=== PATIENT | male | born 1980 | race Caucasian/White ===

== ENCOUNTER 2021-02-04 09:34 | Outpatient (REF) | payer BC, SELFPAY ==
[2021-02-04 11:22] LABS: MANUAL DIFF FLAG NO
[2021-02-04 11:25] LABS: Basophils Percent Auto 0.4 % (0-2); Eosinophils Absolute Auto 0.3 X10*3/uL (0.0-0.4); Hematocrit 42.7 % (42-52); Hemoglobin 14.7 g/dl (14.0-18.0); Imm Gran Abs Auto 0.01 X10*3/uL (0.00-0.03); Imm Gran Pct Auto 0.1 % (0.0-0.4); Lymphocytes Absolute Auto 2.6 X10*3/uL (1.2-4.9); Lymphocytes Percent Auto 37.6 % (20-40); Mean Corpuscular HGB Conc 34.4 g/dl (31.0-36.0); Mean Corpuscular Hemoglobin 30.6 pg (27.0-33.0); Mean Platelet Volume 8.8 fL (9.4-12.4); Monocytes Absolute Auto 0.7 X10*3/uL (0.1-1.2); Monocytes Percent Auto 10.3 % (2-11); Neutrophils Absolute Auto 3.3 X10*3/uL (2.0-8.3); Neutrophils Percent Auto 47.6 % (45-73); Platelet Count 334 X10*3/uL (160-400); Red Cell Distribution Width 12.8 % (11.0-16.0)
[2021-02-04 12:21] LABS: Alanine Aminotransferase 26 U/L (0-40); Albumin Level 4.4 g/dL (3.5-5.0); Alkaline Phosphatase 63 U/L (39-117); Anion Gap 10 (12-20); Aspartate Amino Transferase 18 U/L (5-37); Bilirubin Total 0.6 mg/dL (0.0-1.0); Blood Urea Nitrogen 14 mg/dL (9-16); Calcium 9.1 mg/dL (8.4-10.2); Carbon Dioxide 27 mmol/L (22-29); Chloride 106 mmol/L (96-108); Cholesterol 157 mg/dL; Estimated Glomerular Filt Rate > 60; Glucose Fasting 89 mg/dL (60-99); HDL Cholesterol 50 mg/dL; LDL Cholesterol Calculated 90 mg/dl; Potassium 4.6 mmol/L (3.3-5.1); Prostate Specific Antigen 1.06 ng/mL (<0.05-4.0); Sodium 138 mmol/L (135-145); Total Protein 6.6 g/dL (6.5-8.0); Triglycerides 87 mg/dL
== END 2021-02-04 09:35 | disposition home or self-care (01) ==
LOC: HO.MANLDS 09:34
PROVIDERS: PCP Internal Medicine; Visit Provider Internal Medicine
DX: Z00.00 Encounter for general adult medical examination without abnormal findings (principal); Z12.5 Encounter for screening for malignant neoplasm of prostate
CPT/HCPCS: 36415; 80053; 80061; 84153; 85025

== ENCOUNTER 2021-08-05 07:48 | Outpatient (REF) | payer BC, SELFPAY ==
[2021-08-05 11:07] LABS: Hematocrit 46.9 % (42.0-52.0); Hemoglobin 15.8 g/dl (14.0-18.0); Mean Corpuscular HGB Conc 33.7 g/dl (31.0-36.0); Platelet Count 345 X10*3/uL (160-400); Red Blood Count 5.27 X10*6/uL (4.60-5.80); Red Cell Distribution Width 12.8 % (11.0-16.0); White Blood Count 7.7 X10*3/uL (4.8-10.8)
[2021-08-05 11:38] LABS: Alanine Aminotransferase 17 U/L (0-40); Albumin Level 4.6 g/dL (3.5-5.0); Alkaline Phosphatase 56 U/L (39-117); Anion Gap 15 (12-20); Aspartate Amino Transferase 15 U/L (5-37); Bilirubin Total 0.7 mg/dL (0.0-1.0); Blood Urea Nitrogen 15 mg/dL (9-16); Calcium 9.7 mg/dL (8.4-10.2); Carbon Dioxide 26 mmol/L (22-29); Chloride 105 mmol/L (96-108); Cholesterol 160 mg/dL; Estimated Glomerular Filt Rate > 60; Glucose Fasting 86 mg/dL (60-99); HDL Cholesterol 48 mg/dL; LDL Cholesterol Calculated 93 mg/dl; Potassium 4.7 mmol/L (3.3-5.1); Sodium 141 mmol/L (135-145); Triglycerides 99 mg/dL
== END 2021-08-05 07:49 | disposition home or self-care (01) ==
LOC: HO.MANLDS 07:48
PROVIDERS: PCP Internal Medicine; Visit Provider Internal Medicine
DX: Z00.00 Encounter for general adult medical examination without abnormal findings (principal); E78.00 Pure hypercholesterolemia, unspecified
CPT/HCPCS: 36415; 80053; 80061; 85027

== ENCOUNTER 2022-02-10 08:54 | Outpatient (REF) | payer BC, SELFPAY ==
[2022-02-10 11:02] LABS: Urine Cytology See Pathology rpt
[2022-02-10 11:07] LABS: Hematocrit 43.3 % (42.0-52.0); Hemoglobin 14.9 g/dl (14.0-18.0); Mean Corpuscular HGB Conc 34.4 g/dl (31.0-36.0); Mean Corpuscular Hemoglobin 30.3 pg (27.0-33.0); Mean Corpuscular Volume 88.2 fL (80.0-98.0); Mean Platelet Volume 8.8 fL (9.4-12.4); Platelet Count 347 X10*3/uL (160-400); Red Blood Count 4.91 X10*6/uL (4.60-5.80); White Blood Count 6.2 X10*3/uL (4.8-10.8)
[2022-02-10 11:09] LABS: Appearance Urine CLEAR; Color Urine YELLOW; Glucose Urine UA NEG (NEG); Leukocyte Esterase Urine NEG (NEG); Nitrite Urine NEG (NEG); Urine Blood 1+ (NEG); Urine Ketones NEG (NEG); Urine Protein NEG (NEG-TRACE)
[2022-02-10 11:19] LABS: Alanine Aminotransferase 24 U/L (0-40); Albumin Level 4.2 g/dL (3.5-5.0); Alkaline Phosphatase 66 U/L (39-117); Anion Gap 11 (12-20); Aspartate Amino Transferase 18 U/L (5-37); Bilirubin Total 0.6 mg/dL (0.0-1.0); Blood Urea Nitrogen 13 mg/dL (9-16); Calcium 9.4 mg/dL (8.4-10.2); Carbon Dioxide 25 mmol/L (22-29); Chloride 105 mmol/L (96-108); Cholesterol 164 mg/dL; Estimated Glomerular Filt Rate > 60; Glucose Fasting 97 mg/dL (60-99); HDL Cholesterol 46 mg/dL; LDL Cholesterol Calculated 105 mg/dl; Potassium 4.5 mmol/L (3.3-5.1); Sodium 136 mmol/L (135-145); Total Protein 6.7 g/dL (6.5-8.0); Triglycerides 68 mg/dL
[2022-02-10 11:25] LABS: Squamous Epithelial Cell Urine TRACE /LPF; WBC Urine 0-2 /HPF (0-4)
[2022-02-10 11:41] LABS: Thyroid Stimulating Hormone 0.59 uIU/mL (0.32-4.0); Vitamin D 25-OH Total 10.6 ng/mL (>30)
[2022-02-16 18:37] LABS: Testosterone, Free 126.2 pg/mL (35.0-155.0); Testosterone, Total 644 ng/dL (250-1100)
== END 2022-02-10 08:55 | disposition home or self-care (01) ==
LOC: HO.MANLDS 08:54
PROVIDERS: PCP Internal Medicine; Visit Provider Internal Medicine
DX: E78.00 Pure hypercholesterolemia, unspecified (principal); M51.37 Other intervertebral disc degeneration, lumbosacral region; R53.83 Other fatigue; E55.9 Vitamin D deficiency, unspecified; R31.9 Hematuria, unspecified
CPT/HCPCS: 36415; 80053; 80061; 81001; 82306; 84402; 84403; 84443; 85027; 88112

== ENCOUNTER 2022-07-17 08:04 | Outpatient (REF) | payer BC, SELFPAY ==
[2022-07-17 11:02] LABS: MANUAL DIFF FLAG NO
[2022-07-17 11:05] LABS: Basophils Percent Auto 0.3 % (0-2); Eosinophils Absolute Auto 0.3 X10*3/uL (0.0-0.4); Eosinophils Percent Auto 3.6 % (0-4); Hematocrit 44.9 % (42.0-52.0); Hemoglobin 15.4 g/dl (14.0-18.0); Imm Gran Abs Auto 0.02 X10*3/uL (0.00-0.03); Imm Gran Pct Auto 0.3 % (0.0-0.4); Lymphocytes Absolute Auto 2.8 X10*3/uL (1.2-4.9); Lymphocytes Percent Auto 38.1 % (20-40); Mean Corpuscular HGB Conc 34.3 g/dl (31.0-36.0); Mean Corpuscular Hemoglobin 30.3 pg (27.0-33.0); Mean Corpuscular Volume 88.4 fL (80.0-98.0); Mean Platelet Volume 8.8 fL (9.4-12.4); Monocytes Absolute Auto 0.8 X10*3/uL (0.1-1.2); Monocytes Percent Auto 10.7 % (2-11); Neutrophils Absolute Auto 3.4 x10*3/uL (2.0-8.3); Platelet Count 357 X10*3/uL (160-400); Red Blood Count 5.08 X10*6/uL (4.60-5.80); Red Cell Distribution Width 12.4 % (11.0-16.0); White Blood Count 7.3 X10*3/uL (4.8-10.8)
[2022-07-17 11:19] LABS: Alanine Aminotransferase 28 U/L (0-40); Albumin Level 4.7 g/dL (3.5-5.0); Alkaline Phosphatase 77 U/L (39-117); Anion Gap 14 (12-20); Aspartate Amino Transferase 17 U/L (5-37); Bilirubin Total 0.8 mg/dL (0.0-1.0); Blood Urea Nitrogen 14 mg/dL (9-16); Calcium 9.9 mg/dL (8.4-10.2); Carbon Dioxide 28 mmol/L (22-29); Chloride 101 mmol/L (96-108); Cholesterol 173 mg/dL; Estimated Glomerular Filt Rate > 60; Glucose Random 90 mg/dL (60-115); HDL Cholesterol 50 mg/dL; LDL Cholesterol Calculated 104 mg/dl; Potassium 4.4 mmol/L (3.3-5.1); Sodium 139 mmol/L (135-145); Total Protein 7.2 g/dL (6.5-8.0); Triglycerides 97 mg/dL
[2022-07-17 11:40] LABS: Prostate Specific Antigen 1.37 ng/mL (<0.05-4.0)
[2022-07-17 11:51] LABS: Vitamin B12 418 pg/mL (200-900)
== END 2022-07-17 08:05 | disposition home or self-care (01) ==
LOC: HO.MANLDS 08:04
PROVIDERS: Visit Provider Internal Medicine
DX: Z12.5 Encounter for screening for malignant neoplasm of prostate (principal); E78.00 Pure hypercholesterolemia, unspecified
CPT/HCPCS: 36415; 80053; 80061; 82306; 82607; 84153; 85025

== ENCOUNTER 2023-03-13 08:15 | Outpatient (REF) | payer BC, SELFPAY ==
[2023-03-13 11:27] LABS: MANUAL DIFF FLAG NO
[2023-03-13 11:37] LABS: Basophils Percent Auto 0.4 % (0-2); Eosinophils Absolute Auto 0.2 X10*3/uL (0.0-0.4); Eosinophils Percent Auto 2.4 % (0-4); Hematocrit 44.7 % (42.0-52.0); Hemoglobin 15.2 g/dl (14.0-18.0); Imm Gran Abs Auto 0.02 X10*3/uL (0.00-0.03); Imm Gran Pct Auto 0.3 % (0.0-0.4); Lymphocytes Absolute Auto 2.7 X10*3/uL (1.2-4.9); Lymphocytes Percent Auto 38.5 % (20-40); Mean Corpuscular Volume 88.3 fL (80.0-98.0); Mean Platelet Volume 8.8 fL (9.4-12.4); Monocytes Absolute Auto 0.7 X10*3/uL (0.1-1.2); Monocytes Percent Auto 10.4 % (2-11); Neutrophils Absolute Auto 3.4 x10*3/uL (2.0-8.3); Platelet Count 357 X10*3/uL (160-400); Red Blood Count 5.06 X10*6/uL (4.60-5.80); Red Cell Distribution Width 13.1 % (11.0-16.0); White Blood Count 7.1 X10*3/uL (4.8-10.8)
[2023-03-13 12:20] LABS: Alanine Aminotransferase 27 U/L (0-40); Albumin Level 4.4 g/dL (3.5-5.0); Alkaline Phosphatase 68 U/L (39-117); Anion Gap 13 (12-20); Aspartate Amino Transferase 19 U/L (5-37); Bilirubin Total 0.7 mg/dL (0.0-1.0); Blood Urea Nitrogen 14 mg/dL (9-16); Calcium 9.9 mg/dL (8.4-10.2); Carbon Dioxide 25 mmol/L (22-29); Chloride 106 mmol/L (96-108); Cholesterol 152 mg/dL; Estimated Glomerular Filt Rate > 60; Glucose Random 93 mg/dL (60-115); HDL Cholesterol 45 mg/dL; LDL Cholesterol Calculated 88 mg/dl; Potassium 4.4 mmol/L (3.3-5.1); Sodium 140 mmol/L (135-145); Total Protein 6.9 g/dL (6.5-8.0); Triglycerides 95 mg/dL
[2023-03-13 12:21] LABS: Prostate Specific Antigen 1.45 ng/mL (<0.05-4.0)
[2023-03-13 12:24] LABS: Vitamin D 25-OH Total 27.5 ng/mL (>30)
== END 2023-03-13 08:16 | disposition home or self-care (01) ==
LOC: HO.MANLDS 08:15
PROVIDERS: Visit Provider Internal Medicine
DX: Z12.5 Encounter for screening for malignant neoplasm of prostate (principal); F45.8 Other somatoform disorders; E55.9 Vitamin D deficiency, unspecified; E78.00 Pure hypercholesterolemia, unspecified
CPT/HCPCS: 36415; 80053; 80061; 82306; 84153; 85025

== ENCOUNTER 2023-03-16 15:50 | Outpatient (REF) | payer BC, SELFPAY ==
[2023-03-16 19:06] LABS: Appearance Urine Clear; Color Urine Yellow; Glucose Urine UA Negative (Negative); Leukocyte Esterase Urine Negative (Negative); Nitrite Urine Negative (Negative); Specific Gravity - Urine <= 1.005 (1.005-1.025); UMIC TRIGGER UA YES; Urine Blood Moderate (2+) (Negative); Urine Ketones Negative (Negative); Urine Protein Negative (Neg-Trace)
[2023-03-16 19:11] LABS: Bacteria Urine None Seen (None Seen); Hyaline Casts Urine 0-2 /LPF (0-2); Squamous Epithelial Cell Urine 0-2 /HPF (0-2); WBC Urine 0-5 /HPF (0-5)
== END 2023-03-16 15:51 | disposition home or self-care (01) ==
LOC: HO.MANLNP 15:50
PROVIDERS: Visit Provider Internal Medicine
DX: R31.29 Other microscopic hematuria (principal)
CPT/HCPCS: 81001; 81003

== ENCOUNTER 2023-04-10 12:02 | Outpatient (REF) | payer BC, SELFPAY ==
[2023-04-10 17:36] LABS: Urine Cytology See Pathology rpt
== END 2023-04-10 12:03 | disposition home or self-care (01) ==
LOC: HO.MANLDS 12:02
PROVIDERS: Visit Provider Internal Medicine
DX: R31.21 Asymptomatic microscopic hematuria (principal)
CPT/HCPCS: 88112

== ENCOUNTER 2023-07-10 08:35 | Outpatient (REF) | payer BC, SELFPAY ==
[2023-07-10 13:17] LABS: MANUAL DIFF FLAG NO
[2023-07-10 13:46] LABS: Basophils Percent Auto 0.5 % (0-2); Eosinophils Absolute Auto 0.2 X10*3/uL (0.0-0.4); Eosinophils Percent Auto 2.8 % (0-4); Hemoglobin 15.4 g/dl (14.0-18.0); Imm Gran Abs Auto 0.02 X10*3/uL (0.00-0.03); Imm Gran Pct Auto 0.3 % (0.0-0.4); Lymphocytes Absolute Auto 2.5 X10*3/uL (1.2-4.9); Mean Corpuscular HGB Conc 34.2 g/dl (31.0-36.0); Mean Corpuscular Hemoglobin 30.7 pg (27.0-33.0); Mean Corpuscular Volume 89.6 fL (80.0-98.0); Mean Platelet Volume 9.3 fL (9.4-12.4); Monocytes Absolute Auto 0.6 X10*3/uL (0.1-1.2); Neutrophils Absolute Auto 2.9 x10*3/uL (2.0-8.3); Neutrophils Percent Auto 46.4 % (45-73); Platelet Count 372 X10*3/uL (160-400); Red Blood Count 5.02 X10*6/uL (4.60-5.80); Red Cell Distribution Width 13.1 % (11.0-16.0); White Blood Count 6.2 X10*3/uL (4.8-10.8)
[2023-07-10 15:02] LABS: Alanine Aminotransferase 30 U/L (0-40); Albumin Level 4.6 g/dL (3.5-5.0); Alkaline Phosphatase 71 U/L (39-117); Anion Gap 17 (12-20); Aspartate Amino Transferase 20 U/L (5-37); Bilirubin Total 0.5 mg/dL (0.0-1.0); Blood Urea Nitrogen 15 mg/dL (9-16); Carbon Dioxide 25 mmol/L (22-29); Chloride 105 mmol/L (96-108); Cholesterol 166 mg/dL (<200); Estimated Glomerular Filt Rate > 60; Glucose Random 64 mg/dL (60-115); HDL Cholesterol 46 mg/dL (>40); LDL Cholesterol Calculated 102 mg/dL (<100); Potassium 4.9 mmol/L (3.3-5.1); Sodium 142 mmol/L (135-145); Total Protein 7.4 g/dL (6.5-8.0); Triglycerides 92 mg/dL (<150)
== END 2023-07-10 08:36 | disposition home or self-care (01) ==
LOC: HO.MANLDS 08:35
PROVIDERS: Visit Provider Internal Medicine
DX: Z12.5 Encounter for screening for malignant neoplasm of prostate (principal); E78.00 Pure hypercholesterolemia, unspecified
CPT/HCPCS: 36415; 80053; 80061; 84153; 85025

== ENCOUNTER 2023-11-28 08:47 | Outpatient (REF) | payer BC, SELFPAY ==
[2023-11-28 13:03] LABS: MANUAL DIFF FLAG NO
[2023-11-28 13:30] LABS: Basophils Percent Auto 0.5 % (0-2); Eosinophils Absolute Auto 0.3 X10*3/uL (0.0-0.4); Eosinophils Percent Auto 3.9 % (0-4); Hematocrit 45.6 % (42.0-52.0); Hemoglobin 15.5 g/dl (14.0-18.0); Imm Gran Abs Auto 0.02 X10*3/uL (0.00-0.03); Imm Gran Pct Auto 0.3 % (0.0-0.4); Lymphocytes Absolute Auto 2.3 X10*3/uL (1.2-4.9); Lymphocytes Percent Auto 36.8 % (20-40); Mean Corpuscular Hemoglobin 30.4 pg (27.0-33.0); Mean Corpuscular Volume 89.4 fL (80.0-98.0); Mean Platelet Volume 9.2 fL (9.4-12.4); Monocytes Absolute Auto 0.7 X10*3/uL (0.1-1.2); Monocytes Percent Auto 10.7 % (2-11); Neutrophils Percent Auto 47.8 % (45-73); Platelet Count 359 X10*3/uL (160-400); Red Cell Distribution Width 13.1 % (11.0-16.0); White Blood Count 6.3 X10*3/uL (4.8-10.8)
[2023-11-28 13:39] LABS: Alanine Aminotransferase 27 U/L (0-40); Albumin Level 4.5 g/dL (3.5-5.0); Alkaline Phosphatase 75 U/L (39-117); Anion Gap 11 (12-20); Aspartate Amino Transferase 20 U/L (5-37); Bilirubin Total 0.6 mg/dL (0.0-1.0); Blood Urea Nitrogen 10 mg/dL (9-16); Calcium 9.7 mg/dL (8.4-10.2); Carbon Dioxide 28 mmol/L (22-29); Chloride 105 mmol/L (96-108); Estimated Glomerular Filt Rate > 60; Glucose Random 90 mg/dL (60-115); Potassium 4.5 mmol/L (3.3-5.1); Sodium 139 mmol/L (135-145); Total Protein 7.2 g/dL (6.5-8.0)
[2023-11-28 13:43] LABS: Free T4 (Free Thyroxine) 1.01 ng/dL (0.71-1.85); Thyroid Stimulating Hormone 0.77 uIU/mL (0.32-4.0); Vitamin D 25-OH Total 40.9 ng/mL (>30)
[2023-11-28 14:52] LABS: Folate 14.8 ng/mL (> or = 4.0); Vitamin B12 487 pg/mL (200-900)
== END 2023-11-28 08:48 | disposition home or self-care (01) ==
LOC: HO.MANLDS 08:47
PROVIDERS: Visit Provider Internal Medicine
DX: R53.83 Other fatigue (principal); R55 Syncope and collapse
CPT/HCPCS: 36415; 80053; 82306; 82607; 82746; 84439; 84443; 85025

== ENCOUNTER → 2024-01-28 08:52 | Outpatient (REF) | payer BC, SELFPAY ==
--- NOTE | 2024-01-28 08:57 | CA_ITS ---
Transthoracic Echocardiogram Patient (Last, First, Middle): Gil Garcia, Gender: Male Date of : 1980 Age: 43 Procedure Date: 01/28/2024 Procedure Type: Transthoracic Echocardiogram Location: OP Height: 177.8 cm Weight: 90.72 kg BSA: 2.09 m2 Heart Rate: 78 bpm BP: 120 / 72 mmHg Furnace Installer: SB Referring MD: Adonis Noel MD Induction Coordination Power Engineer: Noé Jordan MD Symptoms: I95.1 ORTHOSTATIC HTN Study Quality: Adequate ECG Rhythm: Sinus Conclusions: - Essentially normal study Findings Left Ventricle Normal left ventricular size, thickness, and systolic function. The visually estimated ejection fraction is between 55-60%. Diastolic function is normal for age. Right Ventricle Normal right ventricular cavity size and systolic function. Atria Both atria are normal in size. There is no evidence of interatrial shunt. Aortic Valve Normal aortic valve structure and function. There is no aortic valve stenosis. There is no aortic valve regurgitation. Mitral Valve Normal mitral valve structure and function. There is trace mitral valve regurgitation. There is no mitral valve stenosis. Pulmonic Valve The pulmonic valve is likely normal. There is trace to mild pulmonic valve regurgitation. Tricuspid Valve Normal tricuspid valve structure. There is trace tricuspid valve regurgitation. The right ventricular systolic pressure is normal. Normal right atrial pressure. Great Vessels All visible segments of the aorta are normal in size. The pulmonary artery was not well visualized. Venous The inferior vena cava is normal in size and collapses greater than 50% with inspiration. Pericardium/Pleural There is no evidence of pericardial effusion. Prior Study Comparison No prior study available for comparison. Measurements 2D Linear Measurements IVSd: 0.89 0.6-0.9/0.6-1.0 cm LVIDd: 5.41 3.9-5.3/4.2-5.9 cm LVIDd Index: 2.59 2.4-3.2/2.2-3.1 cm/m2 LVIDs: 3.46 2.0-3.6 cm LVPWd: 1.00 0.7-1.1 cm LA Diam: 3.70 2.7-3.8/3.0-4.0 cm LAIDs Index: 1.77 1.5-2.3 cm/m2 LV Mass: 240.57 67-162/88-224 g LV Mass Index: 115.10 43-95/49-115 g/m2 LVOT Diam: 2.50 3.0+(-)1.3 cm 2D Systolic Function EF 4C: 55.70 >55% EF 2C: 58.70 >55% EF BiP: 58.20 >55% Mitral Valve MV Pk E: 0.72 MV PK A: 0.64 MV Decel Time: 195.00 E/A: 1.10 E'Lateral: 10.90 E'Medial: 6.85 E/E' Med: 10.60 E/E' Lat: 6.60 PHT: 57.00 MVA PHT: 3.86 Decel [place]: 3.72 Aortic Valve AoV Pk Ravi: 1.12 AoV Pk Grad: 5.00 LVOT LVOT Pk Ravi: 0.98 LVOT Mn Ravi: 0.68 LVOT VTI: 0.18 LVOT Pk Grad: 4.00 LVOT Mn Grad: 2.00 LVOT Diam: 2.50 LVOT Area: 4.91 Diastolic Function MV Pk E: 0.72 MV Pk A: 0.64 E/A: 1.10 E'Medial: 6.85 E/E' Med: 10.60 E' Laterial: 10.90 E/E' Lat: 6.60 Right Ventricle TAPSE (mm): 27.70 TVS' Ravi: 13.40 Tricuspid Valve RA Press: 8.00 Great Vessels Aorta Sinus of Valsalva: 3.90 2.0-3.5 cm Ao Asc: 3.30 2.1-3.4 cm Pulmonary Veins Pulm Vein S/D 0.70 Pulmonary Valve PV Pk Ravi: 1.01 Peak PV Grad: 4.00 Updated in Other Vendor System with Status of Final Noé Jordan MD electronically signed on 01/28/2024 11:56:45 AM with status of Final
== END ==
LOC: HO.CARD 08:52
PROVIDERS: PCP Internal Medicine; Visit Provider Internal Medicine
DX: I95.1 Orthostatic hypotension (principal)
CPT/HCPCS: 93306

== ENCOUNTER → 2024-01-28 08:57 | Outpatient (BNV) | payer BC, SELFPAY | PROVIDERS: PCP Internal Medicine; Visit Provider Internal Medicine Cardiovascular Disease | DX: I34.0 Nonrheumatic mitral (valve) insufficiency (principal); I36.1 Nonrheumatic tricuspid (valve) insufficiency; I95.1 Orthostatic hypotension | CPT/HCPCS: 93306 ==

== ENCOUNTER 2024-02-04 07:30 | Outpatient (REF) | payer BC, SELFPAY ==
[2024-02-04 14:28] LABS: Cholesterol 200 mg/dL (<200); HDL Cholesterol 47 mg/dL (>40); LDL Cholesterol Calculated 135 mg/dL (<100); Triglycerides 93 mg/dL (<150)
== END 2024-02-04 07:31 | disposition home or self-care (01) ==
LOC: HO.MANLDS 07:30
PROVIDERS: Visit Provider Internal Medicine
DX: Z79.899 Other long term (current) drug therapy (principal); T46.6X5A Adverse effect of antihyperlipidemic and antiarteriosclerotic drugs, initial encounter
CPT/HCPCS: 36415; 80061

== ENCOUNTER 2024-11-12 08:52 | Outpatient (REF) | payer BC, SELFPAY ==
--- OUTSIDE RECORDS SUMMARY | 2024-11-12 09:41 | XMS_ITS | Continuity of Care Document ---
Author Organization [facility], [facility] Address [address] [place] [address] Assessment Encounter Date Assessment Date Assessment LastModified by Organization Details LastModified Time 10/24/2024 10/24/2024 Patient agreed and verbally consents to this audio and video Telehealth appt via a secure platform [email or web address] Not available 10/24/2024 13:42:15 Plan of Treatment Reminders Order Date Submit Date Provider Last Modified By Organization Details Last Modified Time Details Appointments FOLLOW UP 15 2024 03:30P M DR CLEMENTE Not available Not available Not available Lab None recorded. Referral None recorded. Procedures None recorded. Surgeries None recorded. Imaging None recorded. Medication Orders ondansetr on 8 mg disintegr ating tablet 2024 025 [facility][id number], [address] [place] [address], [id number], 10/24/2024 13:47:03 benzonata te 200 mg capsule 2024 025 [facility] #[id number], [address] [place] [address], [id number], 10/24/2024 13:47:04 ciproflox acin 500 mg tablet 2024 025 [facility] #[id number], [address] [place] [address], [id number], 10/24/2024 13:47:03 Medrol (Jozef) 4 mg tablets in a dose pack 2024 025 [facility] #[id number], [address], [place], [id number], 10/24/2024 13:47:02 Patient TargetsNo targets recorded. Patient InstructionsNo instructions recorded. Reason for Referral None Reported. 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 20441576162 4105 Active 2018 Not Available [facility] 4 03:52:31 Depressi ve disorder 06488794 Completed 201902/16/2023 Adonis Clemente, DO [address] [place], [address], [facility] 3 16:28:01 Tobacco dependen ce syndrome 17136489 Active 2020 Not Available [facility] 4 03:52:31 Hordeolu m externum of upper eyelid of right eye 99608332612 9100 Active 2021 Not Available [facility] 4 03:52:30 Pityrias is rosea 53476696 Active 2021 Not Available [facility] 4 03:52:31 Generali zed rash 741392833 Active 2021 Not Available [facility] 4 03:52:31 Pain of left eye 70349101845 9104 Active 2021 Not Available [facility] 4 03:52:31 Rosacea 675916498 Active 2022 Not Available [facility] 4 03:52:31 Vitamin D deficien cy 99167657 Active 2022 Not Available [facility] 4 03:52:31 Blood in urine 92633493 Active 2022 Not Available [facility] 4 03:52:31 Microsco pic hematuri a 612800686 Active 2022 Not Available [facility] 4 03:52:30 Asymptom atic microsco pic hematuri a 92266701827 243581 Active 2022 Not Available [facility] 4 03:52:30 Near syncope 194619487 Active 2022 Not Available [facility] 4 03:52:31 COVID-19 214975215 Active 2022 Not Available [facility] 4 03:52:31 Syncope 770961708 Active 2023 Not Available [facility] 4 03:52:30 Benign paroxysm al position al vertigo 456399644 Active 2023 Not Available [facility] 4 03:52:30 Fatigue 85219720 Active 2023 Not Available [facility] 4 03:52:31 Dizzines s 324155174 Active 2023 Adonis Clemente, [address] [place], [address], [facility] 4 14:56:51 Orthosta tic hypotens ion 66530205 Active 2023 Adonis Clemente DO [address] [place], [address], [facility] 4 15:00:31 Cervical lymphade nopathy 793970922 Active 2023 KATHERINE FLORES [address] [place], [address], [facility] 4 15:24:59 Infectio n of foot 290507637 Active 2023 Adonis Clemente DO [address] [place], [address], [facility] 4 16:29:59 Myalgia caused by statin 03267316007 352421 Active 2023 Adonis Clemente DO [address] [place], [address], [facility] 4 16:33:09 Asthma 552146115 Active 2023 Adonis Clemente, DO [address] [place] [address], [address], [facility] 4 14:28:08 Allergic rhinitis 42769128 Active 2023 Adonis Clemente, DO [address] [place] [address], [address], [facility] 4 14:28:49 Anxiety 24173901 Active 2023 Adonis Clemente, DO [address] [place] [address], [address], [facility] 4 14:33:39 Wayne hematuri a 171494897 Active 2023 Adonis Clemente DO [address] [place] [address], [address], [facility] 4 10:46:06 Acute bronchit is 56245950 Active 2024 KATHERINE FLORES [address] [place] [address], [address], [facility] 5 13:42:05 Diarrhea 59731422 Active 2024 KATHERINE FLORES [address] [place] [address], [address], [facility] 5 13:42:44 Nausea and vomiting 06076603 Active 2024 KATHERINE FLORES [address] [place] [address], [address], [facility] 5 13:42:55 Cough 98280327 Active 2024 KATHERINE FLORES [address] [place] [address], [address], [facility] 5 13:45:11 Degenera tion of lumbar interver tebral disc 98341159 Completed 201707/15/2018 Adonis Clemente DO [address] [place], [address], [facility] 8 16:05:33 Function al dysphagi a 011398879 Active 2017 Not Available [facility] 4 03:52:31 Anxiety disorder 665039727 Active 2017 Not Available [facility] 4 03:52:30 Hypercho lesterol emia 26559766 Active 2017 Not Available [facility] 4 03:52:30 Notes:Some problems listed i n Documents: #[id number], #[id number] could not be added to this patient's chart. Please review these documents and add these problems to the patient's chart manually as needed. Problem Notes None recorded. Procedures Surgical History Date Name Laterality Status Provider Name and Address Organization Details Recorded Time 1 Suture/Stap le removal completed KATHERINE FLORES [address] [place] [address], [address], [facility] 01/05/2021 09:22:24 Imaging Results None recorded. Procedure Notes None recorded. Medical Equipment None Reported. Allergies Allergen ID Allergen Name Allergen Category Reaction Reaction Severity Criticality Documentation Date Start Date Code Code System Note Provider Name and Address Organization Details Recorded Time 1464 cyclobenz aprine hydrochlo ride medicatio n Not available Not available Not available 02/12/2018 23407 RxNorm [facility] 8 15:17:41 3761 bupropion Not available insomnia Not available Not available 11/28/2019 86179 RxNorm Adonis AvaIrvin Clemente, [address] [place], [address], [facility] 0 16:10:17 3777 mirtazapi ne medicatio n insomnia severe Not available 12/15/2019 50245 RxNorm Adonis EscalanteIrvin Sadie DO [address] [place], [address], [facility] 0 14:16:21 Medications Name Sig Start Date Stop Date Status Note LastModified by Organization Details LastModified Time doxycycline hyclate 100 mg tabs 06/11 completed Not Available Not Available Not Available nicotine transdermal system 21 mg/24hr pt24 12/16 completed Not Available Not Available Not Available guaiatussin ac 100-10 mg/5ml syrp 10/13 completed Not Available Not Available Not Available rosuvastati n calcium 5 mg tabs 11/11 completed Not Available Not Available Not Available clindamycin phosphate 1 % swab 01/11 completed Not Available Not Available Not Available oxycodone hcl 5 mg tabs 08/12 completed Not Available Not Available Not Available nicotine transdermal system step 214 mg/24hr pt24 06/11 completed Not Available Not Available Not Available omeprazole 20 mg cpdr 11/11 completed Not Available Not Available Not Available bupropion hydrochlori de er (sr) 150 mg tb12 11/11 completed Not Available Not Available Not Available omeprazole dr 20 mg cpdr 04/01 completed Not Available Not Available Not Available alprazolam 1 mg tabs 11/11 completed Not Available Not Available Not Available azithromyci n 250 mg tabs 10/13 completed Not Available Not Available Not Available buspirone hcl 15 mg tabs 10/09 completed Not Available Not Available Not Available oxycodone hydrochlori de 5 mg tabs 01/11 completed Not Available Not Available Not Available nicotine transdermal system 7 mg/24hr pt24 06/11 completed Not Available Not Available Not Available buspirone 5 mg tablet 03/25 completed Not Available Not Available Not Available prednisone 10 mg tablet 5 tabs x 3 days4 tabs x 3 days 3 tabs x 3 days2 tabs x 3 days1 tab x 3 days 02/22 completed Not Available Not Available Not Available nicotine 14 mg/24 hr daily transdermal patch Apply 1 patch every day by transderm al route. 08/12 completed Not Available Not Available Not Available azithromyci n 250 mg tablet TAKE 2 TABLETS (500 MG) BY ORAL ROUTE ONCE DAILY FOR 1 DAY THEN 1 TABLET (250 MG) BY ORAL ROUTE ONCE DAILY FOR 4 DAYS 10/13 completed Not Available Not Available Not Available alprazolam 1 mg tablet TAKE 1 TABLET BY MOUTH THREE TIMES DAILY BEFORE A MEAL active Not Available Not Available No t Available benzonatate 200 mg capsule TAKE 1 CAPSULE BY MOUTH THREE TIMES DAILY FOR 7 DAYS NEEDED FOR COUGH active Not Available Not Available No t Available prednisone 20 mg tablet TAKE 1 TABLET BY MOUTH EVERY DAY FOR 5 DAYS 05/01 completed Not Available Not Available Not Available Wellbutrin SR 150 mg tablet, 12 hr sustained-r elease Take 1 tablet twice a day by oral route for 30 days. 11/27 completed Not Available Not Available Not Available ciprofloxac in 500 mg tablet TAKE 1 TABLET BY MOUTH EVERY 12 HOURS FOR 7 DAYS active Not Available Not Available No t Available clindamycin 1 %-benzoyl peroxide 5 % topical gel APPLY TOPICALLY TO THE AFFECTED AREA TWICE DAILY IN THE MORNING AND IN THE EVENING 05/01 completed Not Available Not Available Not Available sulfamethox azole 800 mg-trimetho prim 160 mg tablet TAKE 1 TABLET BY MOUTH EVERY 12 HOURS FOR 10 DAYS 12/07 completed Not Available Not Available Not Available ondansetron 8 mg disintegrat ing tablet DISSOLVE 1 TABLET ON THE TONGUE TWICE DAILY FOR 14 DAYS NEEDED FOR NAUSEA OR VOMITING active Not Available Not Available No t Available nortriptyli ne 25 mg capsule Take 1 capsule every day by oral route at bedtime for 30 days. 03/08 completed Not Available Not Available Not Available amoxicillin 875 mg tablet TAKE 1 TABLET BY MOUTH EVERY 12 HOURS FOR 7 DAYS 01/06 completed Not Available Not Available Not Available erythromyci n 5 mg/gram (0.5 %) eye ointment APPLY 1 CM RIBBON INTO THE LOWER CONJUNCTI FRANCISCO J SAC(S) IN THE AFFECTED EYE(S) BY OPHTHALMI C ROUTE 3 TIMES PER DAY 05/01 completed Not Available Not Available Not Available mirtazapine 30 mg tablet 02/12 completed Not Available Not Available Not Available triamcinolo ne acetonide 0.1 % topical ointment APPLY TWICE A DAY TO AREAS OF RASH ON BACK NEEDED. USE UP TO 3 WEEKS AT A TIME 03/16 completed Not Available Not Available Not Available buspirone 10 mg tablet 03/25 completed Not Available Not Available Not Available Guaifenesin AC 10 mg-100 mg/5 mL oral liquid Take 10 mL 4 times a day by oral route as needed for 7 days. 10/13 completed Not Available Not Available Not Available clindamycin phosphate 1 % topical swab APPLY A THIN LAYER TO THE AFFECTED AREAS OF THE SKIN TWICE DAILY active Not Available Not Available No t Available oxycodone 5 mg capsule Take 1 capsule every 6 hours by oral route. 06/12 completed Not Available Not Available Not Available nicotine 21 mg/24 hr daily transdermal patch APPLY 1 PATCH ONTO THE SKIN EVERY DAY active Not Available Not Available No t Available omeprazole 20 mg capsule,del ayed release TAKE 1 CAPSULE BY MOUTH EVERY DAY 2023 active Not Available Not Available Not Avai lable mirtazapine 15 mg tablet Take 1 tablet every day by oral route for 30 days. 12/14 completed Not Available Not Available Not Available methylpredn isolone 4 mg tablets in a dose pack FOLLOW PACKAGE DIRECTION S active Not Available Not Available No t Available albuterol sulfate HFA 90 mcg/actuati on aerosol inhaler INHALE 2 PUFFS BY MOUTH EVERY 6 HOURS NEEDED active Not Available Not Available No t Available fluticasone propionate 50 mcg/actuati on nasal spray,suspe nsion SHAKE LIQUID AND USE 1 SPRAY IN EACH NOSTRIL EVERY DAY active Not Available Not Available No t Available doxycycline hyclate 100 mg tablet Take 1 tablet twice a day by oral route with meals for 10 days. 04/19 completed Not Available Not Available Not Available nortriptyli ne 50 mg capsule TAKE 1 CAPSULE BY MOUTH EVERY DAY IN THE EVENING 08/10 completed Not Available Not Available Not Available amoxicillin 875 mg-potassiu m clavulanate 125 mg tablet TAKE 1 TABLET BY MOUTH 2 TIMES A DAY FOR 10 DAYS. TAKE WITH FOOD 02/22 completed Not Available Not Available Not Available nicotine 7 mg/24 hr daily transdermal patch Apply 1 patch every day by transderm al route. 08/12 completed Not Available Not Available Not Available buspirone 15 mg tablet 03/25 completed Not Available Not Available Not Available oxycodone 5 mg tablet TAKE 1 TABLET BY MOUTH FOUR TIMES DAILY NEEDED 2024 active Not Available Not Available Not Avai lable rosuvastati n 5 mg tablet TAKE 1 TABLET BY MOUTH EVERY DAY 01/06 completed Not Available Not Available Not Available Adacel (Tdap Adolesn/Maikel lt)(PF)2Lf- (2.5-5-3-5m cg)-5 Lf/0.5 mL IM susp 10/18 completed Not Available Not Available Not Available Fluzone Quad (PF) 60 mcg (15 mcg x 4)/0.5 mL IM syringe ADM 0.5ML IM UTD 11/15 completed Not Available Not Available Not Available Vitals None Recorded Social History Question Answer Notes LastModified by Organizat ion Details LastModified Time Tobacco Smoking Status Current Every Day Smoker Not Available [facility] 07/20/2020 03:36:24 What Was The Date Of Your Most Recent Tobacco Screening? 08/18/2024 [email or web address] Information not available 08/18/2024 How Much Tobacco Do You Smoke? 0.5 PPD [id number] Information not available 07/20/2020 Do You Or Have You Ever Used Any Other Forms Of Tobacco Or Nicotine? No Information not available 02/22/2022 Sex: Unknown Functional Status None recorded. Mental Status None recorded. Family History Nothing Reported. Medical History No medical history recorded. Immunizations Vaccine Type Date Status Note Provider Nam e and Address Organization Details Recorded Time COVID-19, mRNA, LNP-S, PF, 30 mcg/0.3 mL dose 1 completed Not Available [facility] 11/01/2023 03:52:31 COVID-19, mRNA, LNP-S, PF, 30 mcg/0.3 mL dose 1 completed Not Available [facility] 11/01/2023 03:52:31 Influenza, split virus, quadrivalent, preservative 1 completed Not Available [facility] 11/01/2023 03:52:31 Influenza, split virus, quadrivalent, preservative 8 completed Not Available [facility] 10/04/2019 02:46:31 Tdap 0 completed Not Available [facility] 11/01/2023 03:52:31 Influenza, split virus, quadrivalent, preservative 0 completed Not Available [facility] 11/01/2023 03:52:31 COVID-19, mRNA, LNP-S, PF, 30 mcg/0.3 mL dose 1 completed Not Available [facility] 11/01/2023 03:52:31 Past Encounters Encounter ID Performer Location Encounter Start Date Encounter Closed Date Diagnosis/Indication Diagnosis SNOMED-CT Code Diagnosis ICD10 Code Diagnosis Note [id number] KATHERINE FLORES [facility] [address],[place] [address] 10/24/2024 09:30:38 10/24/2024 14:42:45 Acute bronchitis 61039225 J20.8 start on abx and steroid combo Diarrhea 09157177 R19.7 cont BRAT diet Nausea and vomiting 1691999 R11.2 start as needed zofran Cough 03118070 R05.1 use PRN Health Concerns Section Related Observation LastModified by Organization Detai ls LastModified Time None Recorded Concern Status LastModified by Organization Details LastModified Time None Recorded Payers Encounter Date Sequence Insurance Name Policy Number Policy Varma Covered Member ID Varma Member ID Guarantor Name 10/24/2024 1 [facility]: [facility] [place] [id number] Gil Garcia [id number] Gil Garcia Notes Date Note Type Note Provider Name a nd Address Organization Details Recorded Time 10/24/2024 text/html c/o sick symptom s The patient is participating in this appointment via telemedicine communication with a phone call/video calling service ([employer])The patient consents to use of these platforms in place of an in-person appointment due to either sick symptoms the patient is presenting with or current office closure due to COVID exposure in order to keep our office staff and patients safe The patient presents to the office today with concerns of sick symptoms including nausea, vomiting, diarrhea, chest tightness, dry persistant cough, aching around his ribs, feels feverish (does not have thermometer, no temp taken), body aches, chills, wheezing The symptoms started originally 4 days agoThe patient reports exposure to school aged children who have been sickThe patient symptoms mainly involves the GI symptoms and the chest tightness Pertinent comorbidities include n/a The patient symptoms are alleviated by n/aThe patient symptoms are exacerbated by activityThe patient has tested for COVID-19 and the results was negative recommend rest, fluids, starting on meds for possible bronchitis vs pna KATHERINE FLORES [address], [place], [address], [facility] 10/24/2024 13:51:14
--- OUTSIDE RECORDS SUMMARY | 2024-11-12 09:41 | XMS_ITS | Data Portability ---
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 exercising daily but he does not Functional dysphagia 722 578452 F45.8 about the same but no major changes Hypercholesterolemia 136 09278 E78.00 cont rosuvastat in as HDL 45 LDL 73 Anxiety 11970898 F41.9 will rx for [place] [id number] KATHERINE FLORES [facility] Internal Medicine [address],[place] [address] 03/08/2020 10:00:14 03/08/2020 11:58:05 Abscess 669729584 L02.91 the patient has a facial abscess, patient reported to squeezing pimple which mostly caused the abscess formation [id number] Adonis Clemente DO [facility] Internal Medicine [address] [facility] [address],[place] [address] 04/19/2020 14:18:41 04/19/2020 15:14:13 Depressive disorder 80907643 F32.9 is now in a major depression increase thenortrip [id number] to 50 Anxiety disorder 6478574 06 F41.9 will refill meds and the nortriptyl line will be increased too Herniation of lumbar intervertebral disc with sciatica 9428265653 42288 M51.16 still an ongoing issue but he is seen he is too young for surgery and not yet ready to have done we are using pain meds as needed so far and the pt has been excellent with compliance and has never asked for more etc this has been for several years now. we wish to see if we need to do anything now to prevent any future worsening. 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 long ddiscuss re using patch or gum [id number] KATHERINE FLORES [facility] Internal Medicine [address],[place] [address] 01/05/2021 09:05:19 01/05/2021 10:22:13 Removal of suture 49433179 Z48.02 tolerated well skin flaps healing well [id number] Adonis Clemente [facility] Internal Medicine [address] [place] [address],[place] [address] 01/11/2021 10:24:19 01/11/2021 11:33:53 Active or passive immunization 287840304 Z23 Adult heal th examination 839662040 Z00.00 doing well and is hanging in there despite the stress Degenerati on of lumbosacral intervertebral disc 90698822 M51.37 as above has failed PT and having worsening symptoms with radicular pain down the right leg now having trouble walking because of pain and is notably weaker in right leg [id number] Adonis Clemente DO [facility] Internal [address],[place] [address] 02/09/2021 11:35:41 02/09/2021 12:27:56 Herniation of lumbar intervertebral disc with sciatica 7923921442 61135 M51.16 still an ongoing issue but he is seen he is too young for surgery and not yet ready to have done we are using pain meds as needed so far and the pt has been excellent with compliance and has never asked for more etc this has been for several years now. we wish to see if we need to do anything now to prevent any future worsening. patient knows he should be exercising daily but he does not [id number] Adonis Clemente [facility] Internal Medicine [address] [place] [address], [place] [address] 05/16/2021 11:38:17 05/16/2021 13:53:40 Degeneration of lumbosacral intervertebral disc 60444986 M51.37 as above has failed PT and having worsening symptoms with radicular pain down the right leg now having trouble walking because of pain and is notably weaker in right leg Anxiety disorder 4192899 06 F41.9 will refill meds and the nortriptyl line will be increased too Tobacco user 070443643 Z 72.0 long discussion told to try patch or even zyn puches [id number] Adonis Clemente [facility] Internal Medicine [address] [place] [address],[place] [address] 08/10/2021 08:53:53 08/10/2021 10:50:39 Hypercholesterolemia 46117133 E78.00 cont rosuvastat in as HDL 45 LDL 73 Degenerati on of lumbosacral intervertebral disc 19217221 M51.37 as above has good and bad days depends upon activity has failed PT and having worsening symptoms with radicular pain down the right leg now having trouble walking because of pain and is notably weaker in right leg Depressive disorder 3548 9007 F32.9 major depression but seems to have been stabilized with the increase of nortriptyl line 25 to 50mg Tobacco de pendence syndrome 86568390 F17.200 long discuss re using patch or gumhis stress level should be getting Blood in urine 23656775 R31.9 [id number] Adonis Clemente [facility] Internal Medicine [address], [place] [address] 09/05/2021 09:16:07 09/05/2021 13:44:36 Anxiety disorder 185025278 F41.9 will refill meds and the nortriptyl line will be increased too Degenerati on of lumbosacral intervertebral disc 30630822 M51.37 as above has good and bad days depends upon activity has failed PT and having worsening symptoms with radicular pain down the right leg now having trouble walking because of pain and is notably weaker in right leg Tobacco de pendence syndrome 09050300 F17.200 long discuss re using patch or gumhis stress level should be getting Atypical chest pain 1025 75565 R07.89 had full w/u at ER but will go back if returns [id number] Adonis Clemente [facility] Internal Medicine [address], [address] [place] [address] 11/18/2021 14:47:44 11/18/2021 15:39:10 Hypercholesterolemia 96257053 E78.00 cont rosuvastat in as HDL 45 LDL 73 Degenerati on of lumbosacral intervertebral disc 69611437 M51.37 as above has good and bad days depends upon activity has failed PT and having worsening symptoms with radicular pain down the right leg now having trouble walking because of pain and is notably weaker in right leg Tobacco de pendence syndrome 17099089 F17.200 long discuss re using patch or gumhis stress level should be getting Fatigue 55293526 R53.83 Vitamin D deficiency 347 26344 E55.9 [id number] KATHERINE FLORES [facility] Internal Medicine [address],[place] [address] 11/23/2021 14:43:42 11/23/2021 17:00:47 Folliculitis 58532217 L02.02 will fu with abx and will call with update next week [id number] KATHERINE FLORES [facility] Internal Medicine [address],[place] [address] 12/07/2021 14:46:56 12/09/2021 08:51:03 Pityriasis rosea 97434333 L42 will start on pred taper and topical for face Acne 87387989 L70.0 will start on topical [id number] KATHERINE FLORES [facility] Internal Medicine [address],[place] [address] 12/16/2021 15:22:00 12/16/2021 16:39:24 Hordeolum externum of upper eyelid of right eye 1420415653 18889 H00.011 will start Pityriasis rosea 5184343 4 L42 improving [id number] Adonis Clemente DO [facility] Internal Medicine [address],[place] [address] 02/22/2022 15:05:55 02/22/2022 16:00:48 Depressive disorder 78137756 F32.9 major depression but seems to have been stabilized with the increase of nortriptyl line 25 to 50mg Tobacco de pendence syndrome 54353091 F17.200 long discuss re using patch or gumhis stress level should be getting Hypercholesterolemia 136 30766 E78.00 cont rosuvastat in as HDL 45 LDL 73 Anxiety disorder 7529843 06 F41.9 will refill meds and the nortriptyl line will be increased too Pityriasis rosea 0015473 4 L42 Hordeolum externum of upper eyelid of right eye 8714039631 31743 H00.011 [id number] Adonis Clemente [facility] Internal Medicine [address], [place] [address] 05/01/2022 16:11:45 05/02/2022 11:04:38 Degeneration of lumbosacral intervertebral disc 13408414 M51.37 as above has good and bad days depends upon activity has failed PT and having worsening symptoms with radicular pain down the right leg now having trouble walking because of pain and is notably weaker in right leg Hordeolum externum of upper eyelid of right eye 8157508948 H00.011 sees an optho soon has had this for 6 months Pityriasis rosea 9192896 4 L42 almost completely resolved Anxiety disorder 6325345 06 F41.9 will refill meds Hypercholesterolemia 136 57049 E78.00 cont rosuvastat in as HDL 45 LDL 73 [id number] Adonis Clemente [facility] Internal Medicine [address], [place] [address] 07/24/2022 10:02:09 07/24/2022 11:35:52 Active or passive immunization 236357779 Z23 patient advised he is due for flu shot Adult [facility] examination 211769603 Z00.00 doing well and is hanging in there despite the stress Hypercholesterolemia 136 90957 E78.00 cont rosuvastat in as HDL 45 LDL 73 [id number] KATHERINE FLORES [facility] Internal Medicine [address], [place] [address] 08/14/2022 11:09:18 08/14/2022 14:19:53 Degeneration of lumbosacral intervertebral disc 38422631 M51.37 given a letter for work to be out until next week [id number] Adonis Clemente [facility] Internal Medicine [address], [place] [address] 02/16/2023 15:57:09 02/16/2023 16:33:54 Degeneration of lumbosacral intervertebral disc 41389660 M51.37 as above has good and bad days depends upon activity has failed PT and having worsening symptoms with radicular pain down the right leg now having trouble walking because of pain and is notably weaker in right leg Tobacco de pendence syndrome 32081565 F17.200 long discuss re using patch or gumhis stress level should be getting Depressive disorder 3548 9007 F32.9 major depression but seems to had been stabili Anxiety disorder F41.9 will refill meds Functional dysphagia 722 458950 F45.8 about the same but no major changes Lon 740032167 L71.9 he will call us with the next exacerbati on Vitamin D deficiency 347 53186 E55.9 Hypercholesterolemia 136 83794 E78.00 cont rosuvastat in as HDL 45 LDL 73 [id number] Adonis Clemente DO [facility] Internal Medicine [address],[place] [address] 03/16/2023 14:45:26 03/16/2023 16:07:20 Hypercholesterolemia 76692470 E78.00 cont rosuvastat in as HDL 45 LDL 73 Herniation of lumbar intervertebral disc with sciatica 3442083910 85023 M51.16 back pain worsening , down the leg left side with leg weakness known disc herniation with nerve root impinge Microscopic hematuria 19 1691450 R31.29 we will need to rechk his father has had this as well but no cancer [id number] Adonis Clemente DO [facility] Internal Medicine [address],[place] [address] 06/11/2023 11:11:55 06/11/2023 12:14:05 Anxiety disorder F41.9 will refill meds Degenerati on of lumbosacral intervertebral disc 83650303 M51.37 as above has good and bad days depends upon activity has failed PT and having worsening symptoms with radicular pain down the right leg now having trouble walking because of pain and is notably weaker in right leg Herniation of lumbar intervertebral disc with sciatica 9960534720 32062 M51.16 back pain worsening , down the leg left side with leg weakness known disc herniation with nerve root impinge Hypercholesterolemia 136 36237 E78.00 cont rosuvastat in as HDL 45 LDL 73 Asymptomat ic microscopic hematuria 3898307557 4858269 R31.21 [place] [id number] DO Antonino [facility] Internal Medicine [address],[place] [address] 07/20/2023 14:43:47 07/20/2023 15:19:30 Anxiety disorder 018734404 F41.9 will refill meds Degenerati on of lumbosacral intervertebral disc 79263665 M51.37 as above has good and bad days depends upon activity has failed PT and having worsening symptoms with radicular pain down the right leg now having trouble walking because of pain and is notably weaker in right leg Herniation of lumbar intervertebral disc with sciatica 3593882127 42051 M51.16 back pain worsening , down the leg left side with leg weakness known disc herniation with nerve root impinge Near syncope 656594074 R 55 we will need to have him worked up [id number] Adonis Clemente [facility] Internal Medicine [address],[place] [address] 09/03/2023 11:08:53 09/03/2023 11:53:51 Hypercholesterolemia 32663867 E78.00 cont rosuvastat in as HDL 45 LDL 73 Near syncope 189044371 R 55 we will need to have him worked up COVID-19 598615824 U07.1 with symptoms resolving we will use an albuterol inhaler and mucinex [id number] Adonis Clemente [facility] Internal Medicine [address],[place] [address] 10/17/2023 10:21:36 10/17/2023 11:24:43 Anxiety disorder 999658522 F41.9 will refill meds Hypercholesterolemia 136 45122 E78.00 cont rosuvastat in as HDL 45 LDL 73 COVID-19 141861551 U07.1 with symptoms resolving we will use an albuterol inhaler and mucinex Asymptomat ic microscopic hematuria 6354974855 3820855 R31.21 will refer to urolgy [place] Syncope 047032633 R55 Benign par oxysmal positional vertigo 758265175 H81.10 Fatigue 67065843 R53.83 [id number] Adonis Clemente [facility] Internal Medicine [address],[facility] [place] [address] 12/14/2023 14:16:35 12/17/2023 08:21:48 Anxiety disorder 742416705 F41.9 will refill meds Fatigue 96201051 R53.83 stable Hypercholesterolemia 136 66418 E78.00 cont rosuvastat in as HDL 45 LDL 73 Asymptomat ic microscopic hematuria 4459885720 0340347 R31.21 will refer to urolgy in [place] Benign par oxysmal positional vertigo 365403755 H81.10 this seemed to be diff we will work him up start with mri Dizziness 339751830 R42 Orthostati c hypotension 47040742 I95.1 [id number] KATHERINE FLORES [facility] Internal Medicine [address],[place] [address] 12/21/2023 14:38:59 12/21/2023 15:48:11 Cervical lymphadenopathy 796952722 R59.0 will set up with US and start on amox/medro l combo in the meantime [id number] Adonis Clemente DO [facility] Internal Medicine [address],[facility] [place] [address] 01/07/2024 16:03:22 01/07/2024 16:36:29 Cervical lymphadenopathy 589613985 R59.0 has resolved will be able to cxl the Orthostati c hypotension 16919172 I95.1 will be waiting for the echo Infection of foot 766209 002 L08.9 will refill 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 2469110605 7240659 T46.6X5A now offf rosuvastat in will chk lipids next visit [id number] Adonis Clemente DO [facility] Internal Medicine [address], [place] [address] 02/15/2024 13:50:59 02/15/2024 15:47:15 Depression screening 696468458 Z13.31 negative Asthma 631871599 J45.90 9 stable and doing well with flovent Allergic rhinitis 924787 04 J30.9 Hypercholesterolemia 136 93757 E78.00 cont rosuvastat in as HDL 47 LDL 135 Anxiety 78164781 F41.9 will rx for now as he cannot eat woithout it Anxiety disorder F41.9 will refill meds [id number] Adonis Clemente [facility] Internal Medicine [address],[place] [address] 05/26/2024 09:08:27 05/26/2024 13:51:28 Hypercholesterolemia 44500553 E78.00 cont rosuvastat in as HDL 47 LDL 135 Vitamin D deficiency 347 16598 E55.9 will chk lab Degenerati on of lumbosacral intervertebral disc 57281004 M51.37 as above has good and bad days the long flight caused some discomfort depends upon activity has failed PT and having worsening symptoms with radicular pain down the right leg now having trouble walking because of pain and is notably weaker in right leg Asthma 517725832 J45.90 9 stable and doing well with flovent Near syncope 607765007 R 55 we will need to have him worked up Orthostati c hypotension 64829494 I95.1 echo is good still has episodes of lightheade dness and noted sbp is dropped [id number] Adonis Clemente [facility] Internal Medicine [address],[place] [address] 06/23/2024 14:50:57 06/23/2024 15:42:28 Hypercholesterolemia 27029466 E78.00 cont rosuvastat in as HDL 47 LDL 139 we will follow Vitamin D deficiency 347 39552 E55.9 will need to start vit d3 1000mg [id number] Adonis Clemente [facility] Internal Medicine [address],[place] [address] 08/18/2024 10:00:05 08/18/2024 10:58:50 Anxiety disorder F41.9 will ref[place] med[facility] [place] [facility] on of lumbosacral intervertebral disc 41428420 M51.379 cont current tx he has been stable Hypercholesterolemia 136 37903 E78.00 cont rosuvastat in as HDL 47 LDL 139 we will repeat test Asthma 197234855 J45.90 9 stable and doing well with flovent Depression screening 171 059269 Z13.31 negative Wayne hematuria 68267041 5 R31.0 urology never called him for follow up consult will need to repeat [id number] KATHERINE FLORES [facility] Internal Medicine [address],[place] [address] 10/24/2024 09:30:38 10/24/2024 14:42:45 Acute bronchitis 45787498 J20.8 start on abx and steroid combo Diarrhea 09020975 R19.7 cont BRAT diet Nausea and vomiting 1693 1999 R11.2 start as needed zofran Cough 19232811 R05.1 use PRN Health Concerns Section Related Observation LastModified by Organization Detai ls LastModified Time None Recorded Concern Status LastModified by Organization Details LastModified Time None Recorded Advance Directives Directive None Recorded Payers Encounter Date Sequence Insurance Name Policy Number Policy Varma Covered Member ID Varma Member ID Guarantor Name 02/15/2024 1 [place] [facility] [place] [id number] Gil Karaman [id number] Gil Karaman 05/26/2024 1 [place] [facility] [place] [place] [facility] [place] [id number] Gil Karaman [id number] Gil Karaman 06/23/2024 1 [place] [facility] [place] ([place]) [id number] Gil Karaman [id number] Gil Karaman 08/18/2024 1 [place] [facility] ([place] [id number] Gil Karaman [id number] Gil Karaman 10/24/2024 1 [place] [facility] ([place] [facility] [place] [id number] Gil Karaman [id number] Gil Karaman Notes Date Note Type Note Provider Name a nd Address Organization Details Recorded Time 02/15/2024 text/html dizziness is now gone and feels much betterhere for review of tests Adonis Clemente DO [address] [place], [address], [facility] Internal Medicine 02/15/2024 14:35:55 05/26/2024 text/html patient is evaluated via tele/video assessment per patient consent during current pandemic Adonis Clemente DO [address] [place], [address], [facility] Internal Medicine 05/26/2024 12:06:14 06/23/2024 text/html here for suzy winters nd is doing ok overall but is tired but has been working every day for 3 weeksotherwise doing wellno cp no sob Adonis Clemente DO [address] [place], [address], [facility] Internal Medicine 06/23/2024 15:25:59 08/18/2024 text/html here for rechk a nd is doing okrelates that his breathing is okgoing to turkey and is going to need extra meds Adonis Clemente DO [address] [place], [address], [facility] 08/18/2024 10:57:31 10/24/2024 text/html c/o sick symptom s The patient is participating in this appointment via telemedicine communication with a phone call/video calling service ([employer])The patient consents to use of these platforms [...] possible bronchitis vs pna KATHERINE FLORES [address] [place], [address], [facility] Internal [facility] 10/24/2024 13:51:14
--- OUTSIDE RECORDS SUMMARY | 2024-11-12 09:41 | XMS_ITS | Clinical Summary ---
Author Organization [facility] Address [address] [place] [address] Care Team Providers Care Business Support Coordinator Name Role Phone Unavailable Primary Care Provider Unavailabl e Social History Tobacco Use Types Packs/Day Years Used Date Smoking Tobacco: Never Assessed Sex and Gender Information Value Date Recorded Sex Assigned at Not on file Gender Identity Not on file Sexual Orientation Not on file Plan of Treatment Health Maintenance Due Date Last Done Comments Hepatitis C Virus Screening 1979 HIV Screening 1992 DTaP/Tdap/Td Vaccines (1 - Tdap) 1998 Hepatitis B Vaccines (1 of 3 - 19+ 3-dose series) 1998 COVID-19 Vaccine (2023-2 5 season) 2024 HPV Vaccines Aged Out No longer eligi ble based on patient's age to complete this topic Pneumococcal Vaccine: Pediat vesna (0-5 Years) and At-Risk Patients (6 to 49 Years) Aged Out No longer eligible b ased on patient's age to complete this topic
[2024-11-12 13:33] LABS: MANUAL DIFF FLAG NO
[2024-11-12 13:36] LABS: Basophils Percent Auto 0.7 % (0-2); Eosinophils Absolute Auto 0.2 X10*3/uL (0.0-0.4); Eosinophils Percent Auto 3.7 % (0-4); Hematocrit 43.5 % (42.0-52.0); Hemoglobin 14.5 g/dl (14.0-18.0); Imm Gran Abs Auto 0.01 X10*3/uL (0.00-0.03); Imm Gran Pct Auto 0.2 % (0.0-0.4); Lymphocytes Absolute Auto 2.6 X10*3/uL (1.2-4.9); Lymphocytes Percent Auto 44.8 % (20-40); Mean Corpuscular HGB Conc 33.3 g/dl (31.0-36.0); Mean Corpuscular Hemoglobin 29.8 pg (27.0-33.0); Mean Corpuscular Volume 89.3 fL (80.0-98.0); Mean Platelet Volume 9.1 fL (9.4-12.4); Monocytes Absolute Auto 0.6 X10*3/uL (0.1-1.2); Monocytes Percent Auto 10.5 % (2-11); Neutrophils Absolute Auto 2.3 x10*3/uL (2.0-8.3); Neutrophils Percent Auto 40.1 % (45-73); Platelet Count 368 X10*3/uL (160-400); Red Blood Count 4.87 X10*6/uL (4.60-5.80); Red Cell Distribution Width 13.2 % (11.0-16.0); White Blood Count 5.7 X10*3/uL (4.8-10.8)
[2024-11-12 14:23] LABS: Prostate Specific Antigen 1.48 ng/mL (<0.05-4.0)
[2024-11-12 14:36] LABS: Alanine Aminotransferase 26 U/L (0-40); Albumin Level 4.1 g/dL (3.5-5.0); Alkaline Phosphatase 69 U/L (39-117); Anion Gap 11 (12-20); Aspartate Amino Transferase 32 U/L (5-37); Bilirubin Total 0.6 mg/dL (0.0-1.0); Blood Urea Nitrogen 12 mg/dL (9-16); Calcium 9.3 mg/dL (8.4-10.2); Carbon Dioxide 26 mmol/L (22-29); Chloride 107 mmol/L (96-108); Cholesterol 207 mg/dL (<200); Estimated Glomerular Filt Rate > 60; Glucose Random 85 mg/dL (60-115); HDL Cholesterol 49 mg/dL (>40); LDL Cholesterol Calculated 140 mg/dL (<100); Potassium 4.5 mmol/L (3.3-5.1); Sodium 139 mmol/L (135-145); Total Protein 7.2 g/dL (6.5-8.0); Triglycerides 92 mg/dL (<150)
== END 2024-11-12 08:53 | disposition home or self-care (01) ==
LOC: HO.MANLDS 08:52
PROVIDERS: Visit Provider Internal Medicine
DX: E78.00 Pure hypercholesterolemia, unspecified (principal); Z12.5 Encounter for screening for malignant neoplasm of prostate
CPT/HCPCS: 36415; 80053; 80061; 84153; 85025

== ENCOUNTER 2024-11-14 14:37 | Outpatient (REF) | payer BC, SELFPAY ==
--- OUTSIDE RECORDS SUMMARY | 2024-11-14 16:51 | XMS_ITS | Clinical Summary ---
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
--- OUTSIDE RECORDS SUMMARY | 2024-11-14 16:51 | XMS_ITS | Continuity of Care Document ---
Author Organization [facility], [facility] Address [address] [place] [address] [place] [address] Assessment Encounter Date Assessment Date Assessment LastModified [...] 8 mg disintegr ating tablet 2024 025 [id number], [address] [place] [address], [id number], 10/24/2024 13:47:03 benzonata te 200 mg capsule 2024 025 [facility] #[id number], [address] [place] [address], [id number], 10/24/2024 13:47:04 ciproflox acin 500 mg tablet 2024 025 [facility] #[id number], [address] [place] [address], [id number], 10/24/2024 13:47:03 Medrol (Jozef) 4 mg tablets in a dose pack 2024 025 [facility][id number], [address], [place], [id number], 10/24/2024 13:47:02 Patient TargetsNo targets recorded. Patient InstructionsNo instructions recorded. Reason for Referral None Reported. 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 55290340743 4105 Active 2018 Not Available [facility] 4 03:52:31 Depressi ve disorder 79355502 Completed 201902/16/2023 Adonis Clemente, DO [address] [place], [address], [facility] 3 16:28:01 Tobacco dependen ce syndrome 19050237 Active 2020 Not Available [facility] 4 03:52:31 Hordeolu m externum of upper eyelid of right eye 83007098891 9100 Active 2021 Not Available [facility] 4 03:52:30 Pityrias is rosea 09812622 Active 2021 Not Available [facility] 4 03:52:31 Generali zed rash 419320606 Active 2021 Not Available [facility] 4 03:52:31 Pain of left eye 98760888807 9104 Active 2021 Not Available [facility] 4 03:52:31 Rosacea 327221909 Active 2022 Not Available [facility] 4 03:52:31 Vitamin D deficien cy 94463242 Active 2022 Not Available [facility] 4 03:52:31 Blood in urine 09434034 Active 2022 Not Available [facility] 4 03:52:31 Microsco pic hematuri a 960765220 Active 2022 Not Available [facility] 4 03:52:30 Asymptom atic microsco pic hematuri a 48339371515 902291 Active 2022 Not Available [facility] 4 03:52:30 Near syncope 702701932 Active 2022 Not Available [facility] 4 03:52:31 COVID-19 703801712 Active 2022 Not Available [facility] 4 03:52:31 Syncope 512617541 Active 2023 Not Available [facility] 4 03:52:30 Benign paroxysm al position al vertigo 347234875 Active 2023 Not Available [facility] 4 03:52:30 Fatigue 81424837 Active 2023 Not Available [facility] 4 03:52:31 Dizzines s 538911916 Active 2023 Adonis Clemetne, [address] [place], [address], [facility] 4 14:56:51 Orthosta tic hypotens ion 73757273 Active 2023 Adonis Clemente DO [address] [place], [address], [facility] 4 15:00:31 Cervical lymphade nopathy 325299602 Active 2023 KATHERINE FLORES [address] [place], [address], [facility] 4 15:24:59 Infectio n of foot 530228015 Active 2023 Adonis Clemente DO [address] [place], [address], [facility] 4 16:29:59 Myalgia caused by statin 66545962133 111955 Active 2023 Adonis Clemente DO [address] [place], [address], [facility] 4 16:33:09 Asthma 913490862 Active 2023 Adonis Clemente, DO [address] [place] [address], [address], [facility] 4 14:28:08 Allergic rhinitis 65342392 Active 2023 Adonis Clemente, DO [address] [place] [address], [address], [facility] 4 14:28:49 Anxiety 09143569 Active 2023 Adonis Clemente, DO [address] [place] [address], [address], [facility] 4 14:33:39 Wayne hematuri a 941715613 Active 2023 Adonis Clemente DO [address] [place] [address], [address], [facility] 4 10:46:06 Acute bronchit is 92575750 Active 2024 KATHERINE FLORES [address] [place] [address], [address], [facility] 5 13:42:05 Diarrhea 98770009 Active 2024 KATHERINE FLORES [address] [place] [address], [address], [facility] 5 13:42:44 Nausea and vomiting 53601477 Active 2024 KATHERINE FLORES [address] [place] [address], [address], [facility] 5 13:42:55 Cough 07232706 Active 2024 KATHERINE FLORES [address] [place] [address], [address], [facility] 5 13:45:11 Degenera tion of lumbar interver tebral disc 40456989 Completed 201707/15/2018 Adonis Clemente DO [address] [place], [address], [facility] 8 16:05:33 Function al dysphagi a 781244095 Active 2017 Not Available [facility] 4 03:52:31 Anxiety disorder 571715037 Active 2017 Not Available [facility] 4 03:52:30 Hypercho lesterol emia 95234955 Active 2017 Not Available [facility] 4 03:52:30 Notes:Some problems listed i n Documents: #[id number], #[id number] could not be added to this patient's chart. Please review these documents and add these problems to the patient's chart manually as needed. Problem Notes None recorded. Procedures Surgical History Date Name Laterality Status Provider Name and Address Organization Details Recorded Time 1 Suture/Stap le removal completed KATHERINE FLORES [address] [place] [address], [address], [facility] 01/05/2021 09:22:24 Imaging Results None recorded. Procedure Notes None recorded. Medical Equipment None Reported. Allergies Allergen ID Allergen Name Allergen Category Reaction Reaction Severity Criticality Documentation Date Start Date Code Code System Note Provider Name and Address Organization Details Recorded Time 1464 cyclobenz aprine hydrochlo ride medicatio n Not available Not available Not available 02/12/2018 65626 RxNorm [facility] 8 15:17:41 3761 bupropion Not available insomnia Not available Not available 11/28/2019 86719 RxNorm Adonis AvaIrvin Clemente, DO [address] [place], [address], [facility] 0 16:10:17 3777 mirtazapi ne medicatio n insomnia severe Not available 12/15/2019 12377 RxNorm Adonis EscalanteIrvin Sadie DO [address] [place], [address], [facility] 0 14:16:21 Medications Name Sig Start Date Stop Date Status Note LastModified by Organization Details LastModified Time nicotine transdermal system 21 mg/24hr pt24 12/16 [...] completed Not Available Not Available Not Available doxycycline hyclate 100 mg tabs 06/11 completed [...] Status Current Every Day Smoker Not Available [facility] 07/20/2020 03:36:24 What Was The Date Of Your Most Recent Tobacco Screening? 08/18/2024 [email or web address] Information not available 08/18/2024 How Much Tobacco Do You Smoke? 0.5 PPD [id number] Information not available 07/20/2020 Do You Or [...] mcg/0.3 mL dose 1 completed Not Available [facility] 11/01/2023 03:52:31 COVID-19, mRNA, LNP-S, PF, 30 mcg/0.3 mL dose 1 completed Not Available [facility] 11/01/2023 03:52:31 Influenza, split virus, quadrivalent, preservative 1 completed Not Available [facility] 11/01/2023 03:52:31 Influenza, split virus, quadrivalent, preservative 8 completed Not Available [facility] 10/04/2019 02:46:31 Tdap 0 completed Not Available [facility] 11/01/2023 03:52:31 Influenza, split virus, quadrivalent, preservative 0 completed Not Available [facility] 11/01/2023 03:52:31 COVID-19, mRNA, LNP-S, PF, 30 mcg/0.3 mL dose 1 completed Not Available [facility] 11/01/2023 03:52:31 Past Encounters Encounter ID Performer Location Encounter Start Date Encounter Closed Date Diagnosis/Indication Diagnosis SNOMED-CT Code Diagnosis ICD10 Code Diagnosis Note [id number] KATHERINE FLORES [facility] [address],[place] [address] 10/24/2024 09:30:38 10/24/2024 14:42:45 Acute bronchitis 75214078 J20.8 start on abx and steroid combo Diarrhea 10459341 R19.7 cont BRAT diet Nausea and vomiting 1691999 R11.2 start as needed zofran Cough 07567922 R05.1 use PRN Health Concerns Section Related Observation LastModified by Organization Detai ls LastModified Time None Recorded Concern Status LastModified by Organization Details LastModified Time None Recorded Payers Encounter Date Sequence Insurance Name Policy Number Policy Varma Covered Member ID Varma Member ID Guarantor Name 10/24/2024 1 [facility] [place] [id number] Gil Garcia [id number] Gil Garcia Notes Date Note Type Note Provider Name a nd Address Organization Details Recorded Time 10/24/2024 text/html c/o sick symptom s The patient is participating in this appointment via telemedicine communication with a phone call/video calling service (Glacier Bayy)The patient consents to use of these platforms [...] possible bronchitis vs pna KATHERINE FLORES [address], [place], [address], [facility] 10/24/2024 13:51:14
--- OUTSIDE RECORDS SUMMARY | 2024-11-14 16:51 | XMS_ITS | Data Portability ---
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 12/07/2021 14:46:56 12/09/2021 08:51:03 Pityriasis rosea 94360911 L42 will start on pred taper and topical for face Acne 97573734 L70.0 will start on topical [id number] KATHERINE FLORES [facility] Internal Medicine [address] [facility],[place] [address] 12/16/2021 15:22:00 12/16/2021 16:39:24 Hordeolum externum of upper eyelid of right eye 0206271920 81257 H00.011 will start Pityriasis rosea 4987769 4 L42 improving [id number] Adonis Clemente DO [facility] Internal Medicine [address] [facility],[place] [address] 02/22/2022 15:05:55 02/22/2022 16:00:48 Depressive disorder 87890876 F32.9 major depression but seems to have been stabilized with the increase of nortriptyl line 25 to 50mg 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 long discuss re using patch or gumhis stress level should be getting Hypercholesterolemia 136 43821 E78.00 cont rosuvastat in as HDL 45 LDL 73 Anxiety disorder 9226317 06 F41.9 will refill meds and the nortriptyl line will be increased too Pityriasis rosea 3491051 4 L42 Hordeolum externum of upper eyelid of right eye 6736417300 95324 H00.011 [id number] Adonis Clemente [facility] Internal Medicine [address] [facility], [place] [address] 05/01/2022 16:11:45 05/02/2022 11:04:38 Degeneration of lumbosacral intervertebral disc 18708556 M51.37 as above has good and bad days depends upon activity has failed PT and having worsening symptoms with radicular pain down the right leg now having trouble walking because of pain and is notably weaker in right leg Hordeolum externum of upper eyelid of right eye 7070620475 08312 H00.011 sees an optho soon has had this for 6 months Pityriasis rosea 1298493 4 L42 almost completely resolved Anxiety disorder 2368960 06 F41.9 will refill meds Hypercholesterolemia 136 49832 E78.00 cont rosuvastat in as HDL 45 LDL 73 [id number] Adonis Clemente [facility] Internal Medicine [address] [facility], [place] [address] 07/24/2022 10:02:09 07/24/2022 11:35:52 Active or passive immunization 428341272 Z23 patient advised he is due for flu shot Adult [facility] examination 053130931 Z00.00 doing well and is hanging in there despite the stress Hypercholesterolemia 136 06917 E78.00 cont rosuvastat in as HDL 45 LDL 73 [id number] KATHERINE FLORES [facility] Internal Medicine [address] [facility], [place] [address] 08/14/2022 11:09:18 08/14/2022 14:19:53 Degeneration of lumbosacral intervertebral disc 38950202 M51.37 given a letter for work to be out until next week [id number] Adonis Clemente [facility] Internal Medicine [address] [facility], [place] [address] 02/16/2023 15:57:09 02/16/2023 16:33:54 Degeneration of lumbosacral intervertebral disc 99449355 M51.37 as above has good and bad days depends upon activity has failed PT and having worsening symptoms with radicular pain down the right leg now having trouble walking because of pain and is notably weaker in right leg Tobacco de pendence syndrome 83990031 F17.200 long discuss re using patch or gumhis stress level should be getting Depressive disorder 3548 9007 F32.9 major depression but seems to had been stabili Anxiety disorder 06 F41.9 will refill meds Functional dysphagia 722 226947 F45.8 about the same but no major changes Lon 442265421 L71.9 he will call us with the next exacerbati on Vitamin D deficiency 347 79766 E55.9 Hypercholesterolemia 136 41982 E78.00 cont rosuvastat in as HDL 45 LDL 73 [id number] Adonis Clemente [facility] Internal Medicine [address] [facility], [employer] [place] [address] 03/16/2023 14:45:26 03/16/2023 16:07:20 Hypercholesterolemia 51557219 E78.00 cont rosuvastat in as HDL 45 LDL 73 Herniation of lumbar intervertebral disc with sciatica 6870029350 85640 M51.16 back pain worsening , down the leg left side with leg weakness known disc herniation with nerve root impinge Microscopic hematuria 19 9528030 R31.29 we will need to rechk his father has had this as well but no cancer [id number] Adonis Clemente DO [facility] Internal Medicine [address] [facility], [facility] [place] [address] 06/11/2023 11:11:55 06/11/2023 12:14:05 Anxiety disorder 497000920 F41.9 will refill meds Degenerati on of lumbosacral intervertebral disc 56504102 M51.37 as above has good and bad days depends upon activity has failed PT and having worsening symptoms with radicular pain down the right leg now having trouble walking because of pain and is notably weaker in right leg Herniation of lumbar intervertebral disc with sciatica 5897703645 23470 M51.16 back pain worsening , down the leg left side with leg weakness known disc herniation with nerve root impinge Hypercholesterolemia 136 74449 E78.00 cont rosuvastat in as HDL 45 LDL 73 Asymptomat ic microscopic hematuria 2474728763 3230300 R31.21 will refer to urolgy in [facility] [id number] Adonis Clemente [facility] Internal Medicine [address] [facility],[place] [address] 07/20/2023 14:43:47 07/20/2023 15:19:30 Anxiety disorder 984199812 F41.9 will refill meds Degenerati on of lumbosacral intervertebral disc 08172923 M51.37 as above has good and bad days depends upon activity has failed PT and having worsening symptoms with radicular pain down the right leg now having trouble walking because of pain and is notably weaker in right leg Herniation of lumbar intervertebral disc with sciatica 4305973900 20966 M51.16 back pain worsening , down the leg left side with leg weakness known disc herniation with nerve root impinge Near syncope 380786394 R 55 we will need to have him worked up [id number] Adonis Clemente, [facility] Internal Medicine [address] [facility],[place] [address] 09/03/2023 11:08:53 09/03/2023 11:53:51 Hypercholesterolemia 49197233 E78.00 cont rosuvastat in as HDL 45 LDL 73 Near syncope 247123042 R 55 we will need to have him worked up COVID-19 324064100 U07.1 with symptoms resolving we will use an albuterol inhaler and mucinex [id number] Adonis Clemente [facility] Internal Medicine [address] [facility],[place] [address] 10/17/2023 10:21:36 10/17/2023 11:24:43 Anxiety disorder 905454749 F41.9 will refill meds Hypercholesterolemia 136 87861 E78.00 cont rosuvastat in as HDL 45 LDL 73 COVID-19 113563456 U07.1 with symptoms resolving we will use an albuterol inhaler and mucinex Asymptomat ic microscopic hematuria 9527871193 4493790 R31.21 will refer to urolgy in [place] Syncope 626007688 R55 Benign par oxysmal positional vertigo 892516003 H81.10 Fatigue 81957720 R53.83 [id number] Adonis Clemente [facility] Internal Medicine [address] [facility],[place] [address] 12/14/2023 14:16:35 12/17/2023 08:21:48 Anxiety disorder F41.9 will refill meds Fatigue 28682450 R53.83 stable Hypercholesterolemia 136 99452 E78.00 cont rosuvastat in as HDL 45 LDL 73 Asymptomat ic microscopic hematuria 4819675366 9143426 R31.21 will refer to urolgy in [place] Benign par oxysmal positional vertigo 720939267 H81.10 this seemed to be diff we will work him up start with mri Dizziness 483454446 R42 Orthostati c hypotension 98566720 I95.1 [id number] SAM CROSS [facility] Internal Medicine [address] [facility] [address],[place] [address] 12/21/2023 14:38:59 12/21/2023 15:48:11 Cervical lymphadenopathy 262674033 R59.0 will set up with US and start on amox/medro l combo in the meantime [id number] Adonis Clemente [facility] Internal Medicine [address] [facility] [address],[place] [address] 01/07/2024 16:03:22 01/07/2024 16:36:29 Cervical lymphadenopathy 234701486 R59.0 has resolved will be able to cxl the Orthostati c hypotension 45839209 I95.1 will be waiting for the echo Infection of foot 755626 002 L08.9 will refill 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 6967733652 8704393 T46.6X5A now offf rosuvastat in will chk lipids next visit [id number] Adonis Clemente [facility] Internal Medicine [address] [facility] [address],[place] [address] 02/15/2024 13:50:59 02/15/2024 15:47:15 Depression screening 089229348 Z13.31 negative Asthma 410812791 J45.90 9 stable and doing well with flovent Allergic rhinitis 476214 04 J30.9 Hypercholesterolemia 136 88764 E78.00 cont rosuvastat in as HDL 47 LDL 135 Anxiety 43385439 F41.9 will rx for now as he cannot eat woithout it Anxiety disorder 06 F41.9 will refill meds [id number] Adonis Clemente [facility] Internal Medicine [address] [facility] [place] [address] 05/26/2024 09:08:27 05/26/2024 13:51:28 Hypercholesterolemia 14638682 E78.00 cont rosuvastat in as HDL 47 LDL 135 Vitamin D deficiency 347 93821 E55.9 will chk lab Degenerati on of lumbosacral intervertebral disc 93432845 M51.37 as above has good and bad days the long flight caused some discomfort depends upon activity has failed PT and having worsening symptoms with radicular pain down the right leg now having trouble walking because of pain and is notably weaker in right leg Asthma 527557994 J45.90 9 stable and doing well with flovent Near syncope 424941868 R 55 we will need to have him worked up Orthostati c hypotension 95489259 I95.1 echo is good still has episodes of lightheade dness and noted sbp is dropped [id number] Adonis Clemente [facility] Internal Medicine [address] [facility],[place] [address] 06/23/2024 14:50:57 06/23/2024 15:42:28 Hypercholesterolemia 76070342 E78.00 cont rosuvastat in as HDL 47 LDL 139 we will follow Vitamin D deficiency 347 09532 E55.9 will need to start vit d3 1000mg [id number] Adonis Clemente [facility] Internal Medicine [address] [facility] [place] [address] 08/18/2024 10:00:05 08/18/2024 10:58:50 Anxiety disorder 896723070 F41.9 will refill meds for a trip to [place] Degenera on of lumbosacral intervertebral disc 76794825 M51.379 cont current tx he has been stable Hypercholesterolemia 136 75607 E78.00 cont rosuvastat in as HDL 47 LDL 139 we will repeat test Asthma 842707701 J45.90 9 stable and doing well with flovent Depression screening 171 705428 Z13.31 negative Wayne hematuria 15639714 5 R31.0 urology never called him for follow up consult will need to repeat [id number] KATHERINE FLORES [facility] Internal Medicine [address] [facility],[place] [address] 10/24/2024 09:30:38 10/24/2024 14:42:45 Acute bronchitis 61964091 J20.8 start on abx and steroid combo Diarrhea 25491890 R19.7 cont BRAT diet Nausea and vomiting 1693 1999 R11.2 start as needed zofran Cough 91643080 R05.1 use PRN Health Concerns Section Related Observation LastModified by Organization Detai ls LastModified Time None Recorded Concern Status LastModified by Organization Details LastModified Time None Recorded Advance Directives Directive None Recorded Payers Encounter Date Sequence Insurance Name Policy Number Policy Varma Covered Member ID Varma Member ID Guarantor Name 02/15/2024 1 [place] [facility] ([facility] [place] [id number] Gil Karaman [id number] Gil Karaman 05/26/2024 1 [place] [employer] [place] [place] [id number] Gil Karaman [id number] Gil Karaman 06/23/2024 1 [place] [employer] [place]) [id number] Gil Karaman [id number] Gil Karaman 08/18/2024 1 [place] [id number] Gil Karaman [id number] Gil Karaman 10/24/2024 1 [place] [place] ([facility] [place] [id number] Gil Karaman [id number] Gil Karaman Notes Date Note Type Note Provider Name a sc Address Organization Details Recorded Time 02/15/2024 text/html dizziness is now gone and feels much betterhere for review of tests Adonis Clemente DO [address] [place], [address], [facility] Internal Medicine 02/15/2024 14:35:55 05/26/2024 text/html patient is evaluated via tele/video assessment per patient consent during current pandemic Adonis Clemente DO [address] [place], [address], [facility] Internal Medicine 05/26/2024 12:06:14 06/23/2024 text/html here for rechk a nd is doing ok overall but is tired but has been working every day for 3 weeksotherwise doing wellno cp no sob Adonis Clemente DO [address] [place], [address], [facility] Internal [facility] 06/23/2024 15:25:59 08/18/2024 text/html here for rechk a nd is doing okrelates that his breathing is okgoing to [place] and is going to need extra meds Adonis Clemente DO [address] [place], [address], [facility] 08/18/2024 10:57:31 10/24/2024 text/html c/o sick symptom s The patient is participating in this appointment via telemedicine communication with a phone call/video calling service ([employer])The patient consents to use of these platforms [...] possible bronchitis vs pna KATHERINE FLORES [address] [place], [address], [facility] 10/24/2024 13:51:14
[2024-11-14 17:50] LABS: Urine Cytology See Pathology rpt
[2024-11-14 17:57] LABS: Appearance Urine Clear; Color Urine Yellow; Glucose Urine UA Negative (Negative); Leukocyte Esterase Urine Negative (Negative); Nitrite Urine Negative (Negative); PH 6.5 (5.0-9.0); Specific Gravity - Urine <= 1.005 (1.005-1.025); UMIC TRIGGER UACC YES; Urine Blood Trace (Negative); Urine Ketones Negative (Negative); Urine Protein Negative (Neg-Trace)
[2024-11-14 18:03] LABS: Bacteria Urine None Seen (None Seen); Hyaline Casts Urine 0-2 /LPF (0-2); RBC Urine 0-2 /HPF (0-2); Squamous Epithelial Cell Urine 0-2 /HPF (0-2); WBC Urine 0-5 /HPF (0-5)
== END 2024-11-14 14:38 | disposition home or self-care (01) ==
LOC: HO.MANLDS 14:37
PROVIDERS: Visit Provider Internal Medicine
DX: E78.00 Pure hypercholesterolemia, unspecified (principal); R31.0 Gross hematuria
CPT/HCPCS: 81001; 88112

== ENCOUNTER 2025-03-31 09:17 | Outpatient (REF) | payer BC, SELFPAY ==
--- OUTSIDE RECORDS SUMMARY | 2025-03-31 09:44 | XMS_ITS | Clinical Summary ---
Author Organization [facility] Address [address] [place] [address] Care Team Providers Care Gameroom Technician Name Role Phone Unavailable Primary Care Provider Unavailabl e Social History Tobacco Use Types Packs/Day Years Used Date Smoking Tobacco: Never Assessed Sex and Gender Information Value Date Recorded Sex Assigned at Not on file Legal Sex Male 1:50 PM EDT Gender Identity Not on file Sexual Orientation [...]
--- OUTSIDE RECORDS SUMMARY | 2025-03-31 09:44 | XMS_ITS | Data Portability ---
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 Adonis Noel DO [facility] Internal Medicine [address] [facility],[place] [address] 02/09/2021 11:35:41 02/09/2021 12:27:56 Herniation of lumbar intervertebral disc with sciatica 1157103133 33284 M51.16 still an ongoing issue but he [...] be exercising daily but he does not [id number] Adonis Noel DO [facility] Internal Medicine [address] [facility],[place] [address] 05/16/2021 11:38:17 05/16/2021 13:53:40 Degeneration of lumbosacral intervertebral disc 06586478 M51.37 as above has failed PT and having worsening symptoms with radicular pain down the right leg now having trouble walking because of pain and is notably weaker in right leg Anxiety disorder 06 F41.9 will refill meds and the nortriptyl line will be increased too Tobacco user 658947496 Z 72.0 long discussion told to try patch or even zyn puches [id number] Adonis Noel [facility] Internal Medicine [address] [facility], [place] [address] 08/10/2021 08:53:53 08/10/2021 10:50:39 Hypercholesterolemia 25237608 E78.00 cont rosuvastat in as HDL 45 LDL 73 Degenerati on of lumbosacral intervertebral disc 85200787 M51.37 as above has good and bad [...] 25 to 50mg 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 long discuss re using patch or gumhis stress level should be getting Blood in urine 16201377 R31.9 [id number] Adonis Nole [facility] Internal Medicine [address] [facility],[place] [address] 09/05/2021 09:16:07 09/05/2021 13:44:36 Anxiety disorder F41.9 will refill meds and the nortriptyl line will be increased too Degenerati on of lumbosacral intervertebral disc 82778255 M51.37 as above has good and bad days depends upon activity has failed PT and having worsening symptoms with radicular pain down the right leg now having trouble walking because of pain and is notably weaker in right leg Tobacco de pendence syndrome 55517735 F17.200 long discuss re using patch or gumhis stress level should be getting Atypical chest pain 1025 90282 R07.89 had full w/u at ER but will go back if returns [id number] Adonis Noel [facility] Internal Medicine [address] [facility] [address],[place] [address] 11/18/2021 14:47:44 11/18/2021 15:39:10 Hypercholesterolemia 16230657 E78.00 cont rosuvastat in as HDL 45 LDL 73 Degenerati on of lumbosacral intervertebral disc 02470077 M51.37 as above has good and bad days depends upon activity has failed PT and having worsening symptoms with radicular pain down the right leg now having trouble walking because of pain and is notably weaker in right leg Tobacco de pendence syndrome 00723177 F17.200 long discuss re using patch or gumhis stress level should be getting Fatigue 49515693 R53.83 Vitamin D deficiency 347 08904 E55.9 [id number] Adonis Noel [facility] Internal Medicine [address] [place] [address], [place] [address] 11/23/2021 14:43:42 11/23/2021 17:00:47 Folliculitis 75556839 L02.02 will fu with abx and will call with update next week [id number] Adonis Noel [facility] Internal Medicine [address] [place] [address], [place] [address] 12/07/2021 14:46:56 12/09/2021 08:51:03 Pityriasis rosea 37986868 L42 will start on pred taper and topical for face Acne 07698125 L70.0 will start on topical [id number] Adonis Noel [facility] Internal [address], [place] [address] 12/16/2021 15:22:00 12/16/2021 16:39:24 Hordeolum externum of upper eyelid of right eye 8706157635 00724 H00.011 will start Pityriasis rosea 6887665 4 L42 improving [id number] Adonis Noel [facility] Internal Medicine [address] [facility],[place] [address] 02/22/2022 15:05:55 02/22/2022 16:00:48 Depressive disorder 33402890 F32.9 major depression but seems to have been stabilized with the increase of nortriptyl line 25 to 50mg Tobacco de pendence syndrome 22840805 F17.200 long discuss re using patch or gumhis stress level should be getting Hypercholesterolemia 136 53592 E78.00 cont rosuvastat in as HDL 45 LDL 73 Anxiety disorder 06 F41.9 will refill meds and the nortriptyl line will be increased too Pityriasis rosea 8214752 4 L42 Hordeolum externum of upper eyelid of right eye 4115950479 35659 H00.011 [id number] Adonis Noel [facility] Internal Medicine [address] [facility],[place] [address] 05/01/2022 16:11:45 05/02/2022 11:04:38 Degeneration of lumbosacral intervertebral disc 05629067 M51.37 as above has good and bad days depends upon activity has failed PT and having worsening symptoms with radicular pain down the right leg now having trouble walking because of pain and is notably weaker in right leg Hordeolum externum of upper eyelid of right eye 9081907514 47642 H00.011 sees an optho soon has had this for 6 months Pityriasis rosea 0630986 4 L42 almost completely resolved Anxiety disorder 06 F41.9 will refill meds Hypercholesterolemia 136 96633 E78.00 cont rosuvastat in as HDL 45 LDL 73 [id number] [facility] [address] [facility],[place] [address] 07/24/2022 10:02:09 07/24/2022 11:35:52 Active or passive immunization 635661976 Z23 patient advised he is due for flu shot Adult [facility] th examination 994186073 Z00.00 doing well and is hanging in there despite the stress Hypercholesterolemia 136 41902 E78.00 cont rosuvastat in as HDL 45 LDL 73 [id number] Adonis Noel [facility] Internal Medicine [address] [facility],[place] [address] 08/14/2022 11:09:18 08/14/2022 14:19:53 Degeneration of lumbosacral intervertebral disc 51667098 M51.37 given a letter for work to be out until next week [id number] Adonis Noel [facility] Internal Medicine [address] [facility] [address],[place] [address] 02/16/2023 15:57:09 02/16/2023 16:33:54 Degeneration of lumbosacral intervertebral disc 06701706 M51.37 as above has good and bad days depends upon activity has failed PT and having worsening symptoms with radicular pain down the right leg now having trouble walking because of pain and is notably weaker in right leg Tobacco de pendence syndrome 72217101 F17.200 long discuss re using patch or gumhis stress level should be getting Depressive disorder 3548 9007 F32.9 major depression but seems to had been stabili Anxiety disorder F41.9 will refill meds Functional dysphagia 722 364836 F45.8 about the same but no major changes Lon 584726192 L71.9 he will call us with the next exacerbati on Vitamin D deficiency 347 49762 E55.9 Hypercholesterolemia 136 98147 E78.00 cont rosuvastat in as HDL 45 LDL 73 [id number] Adonis Noel [facility] Internal Medicine [address] [facility],[place] [facility] [address] 03/16/2023 14:45:26 03/16/2023 16:07:20 Hypercholesterolemia 73849278 E78.00 cont rosuvastat in as HDL 45 LDL 73 Herniation of lumbar intervertebral disc with sciatica 6589413469 87359 M51.16 back pain worsening , down the leg left side with leg weakness known disc herniation with nerve root impinge Microscopic hematuria 19 2608520 R31.29 we will need to rechk his father has had this as well but no cancer [id number] Adonis Noel [facility] Internal Medicine [address] [facility] [address],[place] [address] 06/11/2023 11:11:55 06/11/2023 12:14:05 Anxiety disorder 651800828 F41.9 will refill meds Degenerati on of lumbosacral intervertebral disc 61701261 M51.37 as above has good and bad days depends upon activity has failed PT and having worsening symptoms with radicular pain down the right leg now having trouble walking because of pain and is notably weaker in right leg Herniation of lumbar intervertebral disc with sciatica 8778086313 96895 M51.16 back pain worsening , down the leg left side with leg weakness known disc herniation with nerve root impinge Hypercholesterolemia 136 34506 E78.00 cont rosuvastat in as HDL 45 LDL 73 Asymptomat ic microscopic hematuria 6734321041 8431309 R31.21 will refer to urolgy in [facility] [id number] Adonis Noel [facility] Internal Medicine [address] [place] [address] 07/20/2023 14:43:47 07/20/2023 15:19:30 Anxiety disorder 587973892 F41.9 will refill meds Degenerati on of lumbosacral intervertebral disc 29707919 M51.37 as above has good and bad days depends upon activity has failed PT and having worsening symptoms with radicular pain down the right leg now having trouble walking because of pain and is notably weaker in right leg Herniation of lumbar intervertebral disc with sciatica 0501274041 86996 M51.16 back pain worsening , down the leg left side with leg weakness known disc herniation with nerve root impinge Near syncope 703117388 R 55 we will need to have him worked up [id number] Adonis Noel [facility] Internal Medicine [address] [place] [address] 09/03/2023 11:08:53 09/03/2023 11:53:51 Hypercholesterolemia 41464682 E78.00 cont rosuvastat in as HDL 45 LDL 73 Near syncope 925541979 R 55 we will need to have him worked up COVID-19 732626226 U07.1 with symptoms resolving we will use an albuterol inhaler and mucinex [id number] Adonis Noel [facility] Internal Medicine [address] [place] [address] 10/17/2023 10:21:36 10/17/2023 11:24:43 Anxiety disorder 090832468 F41.9 will refill meds Hypercholesterolemia 136 25803 E78.00 cont rosuvastat in as HDL 45 LDL 73 COVID-19 609083893 U07.1 with symptoms resolving we will use an albuterol inhaler and mucinex Asymptomat ic microscopic hematuria 5984743992 5344487 R31.21 will refer to urolgy in [facility] Syncope 797778804 R55 Benign par oxysmal positional vertigo 321542355 H81.10 Fatigue 78076848 R53.83 [id number] Adonis Noel [facility] Internal Medicine [address] [facility] [address],[place] [address] 12/14/2023 14:16:35 12/17/2023 08:21:48 Anxiety disorder 419167581 F41.9 will refill meds Fatigue 79339139 R53.83 stable Hypercholesterolemia 136 50771 E78.00 cont rosuvastat in as HDL 45 LDL 73 Asymptomat ic microscopic hematuria 4155013536 5553359 R31.21 [facility] par oxysmal positional vertigo 131649007 H81.10 this seemed to be diff we will work him up start with mri Dizziness 347779117 R42 Orthostati c hypotension 60660910 I95.1 [id number] Adonis Noel [facility] Internal Medicine [address] [facility],[place] [address] 12/21/2023 14:38:59 12/21/2023 15:48:11 Cervical lymphadenopathy 341589961 R59.0 will set up with US and start on amox/medro l combo in the meantime [id number] Adonis Noel [facility] Internal Medicine [address] [facility],[place] [address] 01/07/2024 16:03:22 01/07/2024 16:36:29 Cervical lymphadenopathy 711243979 R59.0 has resolved will be able to cxl the US Orthostati c hypotension 69981269 I95.1 will be waiting for the echo Infection of foot 579954 002 L08.9 will refill 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 1710043496 3946194 T46.6X5A now offf rosuvastat in will chk lipids next visit [id number] Adonis Noel [facility] Internal Medicine [address] [facility] [address],[place] [address] 02/15/2024 13:50:59 02/15/2024 15:47:15 Depression screening 988698542 Z13.31 negative Asthma 752355852 J45.90 9 stable and doing well with flovent Allergic rhinitis 872929 04 J30.9 Hypercholesterolemia 136 03606 E78.00 cont rosuvastat in as HDL 47 LDL 135 Anxiety 50038365 F41.9 will rx for now as he cannot eat woithout it Anxiety disorder 6674857 06 F41.9 will refill meds [id number] Adonis Noel [facility] Internal Medicine [address] [facility],[place] [address] 05/26/2024 09:08:27 05/26/2024 13:51:28 Hypercholesterolemia 93046837 E78.00 cont rosuvastat in as HDL 47 LDL 135 Vitamin D deficiency 347 23191 E55.9 will chk lab Degenerati on of lumbosacral intervertebral disc 43747248 M51.37 as above has good and bad days the long flight caused some discomfort depends upon activity has failed PT and having worsening symptoms with radicular pain down the right leg now having trouble walking because of pain and is notably weaker in right leg Asthma 958954806 J45.90 9 stable and doing well with flovent Near syncope 593552577 R 55 we will need to have him worked up Orthostati c hypotension 12793010 I95.1 echo is good still has episodes of lightheade dness and noted sbp is dropped [id number] Adonis Noel [facility] Internal Medicine [address] [facility],[place] [address] 06/23/2024 14:50:57 06/23/2024 15:42:28 Hypercholesterolemia 17830610 E78.00 cont rosuvastat in as HDL 47 LDL 139 we will follow Vitamin D deficiency 347 55499 E55.9 will need to start vit d3 1000mg [id number] Adonis Noel [facility] Internal Medicine [address] [facility],[place] [address] 08/18/2024 10:00:05 08/18/2024 10:58:50 Anxiety disorder 803822988 F41.9 will refill meds for a trip to [place] Degenerati on of lumbosacral intervertebral disc 92163527 M51.379 cont current tx he has been stable Hypercholesterolemia 136 73969 E78.00 cont rosuvastat in as HDL 47 LDL 139 we will repeat test Asthma 022852029 J45.90 9 stable and doing well with flovent Depression screening 171 143635 Z13.31 negative Wayne hematuria 06230260 5 R31.0 urology never called him for follow up consult will need to repeat [id number] Adonis Noel [facility] Internal Medicine [address] [facility],[place] [address] 11/21/2024 15:22:56 11/21/2024 16:04:28 Hypercholesterolemia 14894417 E78.00 cont rosuvastat in as HDL 49 LDL 140 we will chk the ct Orthostati c hypotension 30600960 I95.1 echo is good still has episodes of lightheade dness and noted sbp is dropped Asthma 366169593 J45.90 9 stable and doing well with flovent Depression screening 171 317645 Z13.31 negative Allergic rhinitis 926668 04 J30.9 Infection of foot 561905 002 L08.9 will refill [id number] Adonis Noel [facility] Internal Medicine [address] [facility],[place] [address] 10/24/2024 09:30:38 10/24/2024 14:42:45 Acute bronchitis 46844437 J20.8 start on abx and steroid combo Diarrhea 39630318 R19.7 cont BRAT diet Nausea and vomiting 1693 1999 R11.2 start as needed zofran Cough 17749670 R05.1 use PRN [id number] Adonis Noel [facility] Internal Medicine [address] [facility],[place] [address] 12/19/2024 14:50:48 12/19/2024 15:26:56 Depression screening 442007861 Z13.31 negative Asthma 616263336 J45.90 9 stable and doing well with flovent Hypercholesterolemia 136 78416 E78.00 cont rosuvastat in as HDL 49 LDL 140 we will chk the ct Tobacco de pendence syndrome 65897294 F17.200 long discuss re using patch or gumhis stress level should be getting Family his tory of malignant neoplasm of lung 211069531 Z80.1 Degenerati on of lumbosacral intervertebral disc 93765616 M51.379 cont current tx he has been stable [id number] Adonis Noel DO [facility] Internal Medicine [address] [facility],[place] [address] 02/24/2025 15:05:26 02/24/2025 15:41:37 Depression screening 732453735 Z13.31 negative Asthma 861921765 J45.90 9 stable and doing well with flovent Degenerati on of lumbosacral intervertebral disc 78575359 M51.379 cont current tx he has been stable Hypercholesterolemia 136 30169 E78.00 cont rosuvastat in as HDL 49 LDL 140 we will chk the ct COVID-19 793682517 U07.1 J98.4 still feeling lousy will have him get ct scan after cxr Health Concerns Section Related Observation LastModified by Organization Detai ls LastModified Time None Recorded Concern Status LastModified by Organization Details LastModified Time None Recorded Advance Directives Directive None Recorded Payers Insurance Date Sequence Insurance Name Policy Number Policy Varma Covered Member ID Varma Member ID Guarantor Name 02/13/2024 1 [facility] Gil Garcia [id number] Gil Garcia 02/13/2024 SAFETY INSURANCE [facility] Jose Garcia 02/13/2024 [facility] Gillui Garcia 02/21/2025 1 [facility] [id number] Gil Jose [id number] Gil Garcia Notes Date Note Type Note Provider Name and Address Organization Details Recorded Time 08/18/20 24 text/htm l here for rechk and is doing okrelates that his breathing is okgoing to turkey and is going to need extra meds Adonis Noel DO [address] [facility], [place], [address], [facility] Medicine 08/18/2024 10:57:31 10/24/19 25 text/htm l c/o sick symptoms The patient is participating in this appointment via telemedicine communication with a phone call/video calling service ([employer])The patient consents to use of these platforms [...] for possible bronchitis vs pna KATHERINE FLORES [address] [place] [address], [phone], [facility] 10/24/2024 13:51:14 11/22/19 25 text/htm l Anxiety/DepressionReported bypatient.Severity:denies suicidal ideations; able to maintain relationships; does not interfere with activities of daily living Context:no major life stressors Associated Symptoms:denies homicidal ideations; no significant weight gain; no significant weight loss; no visual/auditory hallucinations; no delusions; no shortness of breath; mood good; no anxiety; no crying spells; no panic; no isolation; sleeping well; appetite good; energy good; no apathy; maintaining functionalityCare Management - AsthmaReported bypatient.Severity:improvi ng; does not interfere with daily activities; does not disturb sleep; does not cause nighttime awakening Associated Symptoms:no fever; no fatigue; no irritability; no cough; normal appetite; no change in productivityCare Management - HypertensionReported bypatient.Self Care:not under emotional stress Severity:symptoms are improving; does not interfere with daily activities Associated Symptoms:no dizziness; no lightheadedness; no chest pain; no shortness of breath; no palpitations; no edema; no calf muscle cramps; no blurred vision; no confusion; no headaches; no fatigue Adonis AvaIrvin Noel DO [address] [place], [address], [facility] Medicine 11/21/2024 15:58:46 12/20/19 25 text/htm l here for rechkrelates that he has been doing okreviewed all results Adonis Tammi DO Sadie [address] [place], [address], [facility] Medicine 12/19/2024 15:09:58 02/25/20 25 text/htm l Care Management - AsthmaReported bypatient.Severity:improvi ng; does not interfere with daily activities; does not disturb sleep; does not cause nighttime awakening Associated Symptoms:no fever; no fatigue; no irritability; no cough; normal appetite; no change in productivityCare Management - HyperlipidemiaReported bypatient.Control:usually well controlled; improving; at goal Complications:no coronary artery disease; no heart attack; no cardiovascular disease; no pancreatitis; no strokeMusculoskeletal PainReported bypatient.Location:pain is not radiating Severity:improving Associated Symptoms:no fever; no weak limbs; no tingling; no numbness of the legs/feet; no incontinence ADL (Activities of Daily Living)improve with medication relates that the most recent covid infection was badrequired the tx of azith and methylpred here for rechkrelates that he has been doing okreviewed all results Adonis Noel DO [address] [place], [address], [facility] 02/24/2025 15:40:13
[2025-03-31 13:51] LABS: MANUAL DIFF FLAG NO
[2025-03-31 14:02] LABS: Hematocrit 43.4 % (42.0-52.0); Hemoglobin 14.7 g/dl (14.0-18.0); Imm Gran Abs Auto 0.01 X10*3/uL (0.00-0.03); Imm Gran Pct Auto 0.2 % (0.0-0.4); Lymphocytes Absolute Auto 2.5 X10*3/uL (1.2-4.9); Mean Corpuscular HGB Conc 33.9 g/dl (31.0-36.0); Mean Corpuscular Hemoglobin 30.0 pg (27.0-33.0); Mean Corpuscular Volume 88.6 fL (80.0-98.0); NRBC Abs Auto 0.000 X10*3/uL (0.0-0.012); NRBC Pct Auto 0.0 /100WBC (0.0-0.2); Platelet Count 330 X10*3/uL (160-400); Red Blood Count 4.90 X10*6/uL (4.60-5.80); White Blood Count 5.8 X10*3/uL (4.8-10.8)
[2025-03-31 14:38] LABS: Alanine Aminotransferase 25 U/L (0-40); Albumin Level 4.4 g/dL (3.5-5.0); Alkaline Phosphatase 66 U/L (39-117); Anion Gap 11 (12-20); Aspartate Amino Transferase 23 U/L (5-37); Blood Urea Nitrogen 8 mg/dL (9-16); Calcium 9.0 mg/dL (8.4-10.2); Carbon Dioxide 26 mmol/L (22-29); Chloride 108 mmol/L (96-108); Cholesterol 208 mg/dL (<200); Estimated Glomerular Filt Rate > 60; HDL Cholesterol 40 mg/dL (>40); Potassium 4.4 mmol/L (3.3-5.1); Sodium 141 mmol/L (135-145); Total Protein 6.7 g/dL (6.5-8.0); Triglycerides 144 mg/dL (<150)
== END 2025-03-31 09:18 | disposition home or self-care (01) ==
LOC: HO.MANLDS 09:17
PROVIDERS: Visit Provider Internal Medicine
DX: E78.00 Pure hypercholesterolemia, unspecified (principal)
CPT/HCPCS: 36415; 80053; 80061; 85025

== ENCOUNTER 2025-08-28 07:37 | Outpatient (REF) | payer BC, SELFPAY ==
--- OUTSIDE RECORDS SUMMARY | 2008-12-27 23:00 | XMS_ITS | Encounter Summary ---
Author Organization [facility] Address [address] [place] [phone] Phone Care Team Providers Care Product Marketing Executive Name Role Phone Unavailable Primary Care Provider Unavailabl e Reason for Visit * MRI/CAT Scan - Closed Specialty Diagnoses / Procedures Referred By Jazmín porter Referred To Contact Procedures MRI Spine (Bone) Outside (No Interpretation) System, Provider [place] In, [place] [address] Referral ID Status Reason Start Date Expiration Date Visits Re quested Visits Authorized [id number] Closed 11/22/2018 11/22/2019 1 1 Encounter Details Date Type Department Care Team (Late st Contact Info) Description 12/28/2008 Hospital Encounter [facility],Outside Imaging [address] [place] [address] System, Provider Not In, [facility] [address] [address] Social History Tobacco Use Types Packs/Day Years Used Date Smoking Tobacco: Every Day Alcohol Use Standard Drinks/Week Comments Not Currently 0 (1 standard drink = 0.6 oz pur e alcohol) Education Answer Date Recorded Are you interested in more education? Not on babak e 01/12/2023 Are you concerned about learning? Not on file 01/12/2023 No 01/12/2023 No 01/12/2023 Digital Access Answer Date Recorded No 02/12/2023 No 02/12/2023 Reliable internet access at home? Not on file 02/12/2023 Device with a working camera? Not on file Intimate Partner Violence Answer Date R ecorded Are you denied basic needs s uch as food, clothing, or medical care? No 11/16/2023 In the past 12 months have y ou been in a relationship with a person who hurts, threatens, or tries to control you? No 11/16/2023 Are you denied basic needs s uch as food, clothing, or medical care? No 11/16/2023 In the past 12 months have y ou been in a relationship with a person who hurts, threatens, or tries to control you? No 11/16/2023 Sex and Gender Information Value Date Recorded Sex Assigned at Male 12/27/2020 3:51 PM EDT Legal Sex Male 9:24 PM EDT Gender Identity Male 12/27/2020 3:51 PM EDT Sexual Orientation Not on file documented as of this encounter Functional Status * Calculated C-SSRS Risk Score (Lifetime/Recent) Answer Date of Assessment Author No Risk Indicated 11/16/2023 11:13 AM Poli Laird RN * Evangeline Suicide Severity Rating Scale (Screener/Recent Self-Report) Question Answer Date of Assessment Author 1. Wish to be (Past 1 Month) No 024 11:13 AM Poli Laird RN 2. Non-Specific Active Suici jamal Thoughts (Past 1 Month) No 11/16/2023 11:13 AM Lottie Laird ea, RN 6. Suicidal Behavior (Lifetime) No 11:13 AM Poli Laird RN documented as of this encounter Plan of Treatment Not on file documented as of this encounter Procedures Procedure Name Priority Date/Time Associated Diagnosis Comments MRI SPINE MUSCULOSKELETAL FOCUS OUTSIDE (NO INTERPRETATION) Routine 12/28/2008 12:00 AM EDT documented in this encounter Results * MRI Spine (Bone) Outside (No Interpretation) (12/28/2008 12:00 AM EDT) Narrative SYSTEMGENERATED, DOCUMENTATION - 11/22/2018 11:58 AM EST This study is for PACS storage only and not for interpretation. us Provider Not In System PhD IMG OUTSIDE IMAGING W /OUT INTERPRETATION Final Result documented in this encounter Visit Diagnoses Not on filedocumented in this encounter Additional Health Concerns Infection Onset Date Last Indicated Resolved Time CoV-Risk 10/09/2022 10/09/2022 10/20/2022 1:22 AM EST COVID-19 08/20/2023 08/20/2023 09/10/2023 1:21 AM EST documented as of this encounter Additional Source Comments The information contained in this document represents components of the legal health record. It is not the complete legal health record.[facility]
--- OUTSIDE RECORDS SUMMARY | 2025-08-28 07:48 | XMS_ITS | Data Portability ---
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 [facility],[place] [address] 09/05/2021 09:16:07 09/05/2021 13:44:36 Anxiety disorder 715727593 F41.9 will refill meds and the nortriptyl line will be increased too Degenerati on of lumbosacral intervertebral disc 17429681 M51.37 as above has good and bad days depends upon activity has failed PT and having worsening symptoms with radicular pain down the right leg now having trouble walking because of pain and is notably weaker in right leg 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 long discuss re using patch or gumhis stress level should be getting Atypical chest pain 1025 81478 R07.89 had full w/u at ER but will go back if returns [id number] Adonis Clemente [facility] Internal Medicine [address] [facility],[place] [address] 11/18/2021 14:47:44 11/18/2021 15:39:10 Hypercholesterolemia 48913901 E78.00 cont rosuvastat in as HDL 45 LDL 73 Degenerati on of lumbosacral intervertebral disc 79761660 M51.37 as above has good and bad days depends upon activity has failed PT and having worsening symptoms with radicular pain down the right leg now having trouble walking because of pain and is notably weaker in right leg Tobacco de pendence syndrome 33556197 F17.200 long discuss re using patch or gumhis stress level should be getting Fatigue 50946327 R53.83 Vitamin D deficiency 347 04442 E55.9 85921 Adonis Clemente [facility] Internal Medicine [address] [facility],[place] [address] 11/23/2021 14:43:42 11/23/2021 17:00:47 Folliculitis 38203993 L02.02 will fu with abx and will call with update next week [id number] Adonis Clemente [facility] Internal Medicine [address] [facility],[place] [address] [facility] [place] [address] 12/07/2021 14:46:56 12/09/2021 08:51:03 Pityriasis rosea 19385926 L42 will start on pred taper and topical for face Acne 07908582 L70.0 will start on topical [id number] Adonis Clemente [facility] Medicine [address] [facility],[place] [address] 12/16/2021 15:22:00 12/16/2021 16:39:24 Hordeolum externum of upper eyelid of right eye 5944269702 03499 H00.011 will start Pityriasis rosea 8998382 4 L42 improving 58149 Adonis Clemente [facility] Internal [facility] [address] [facility],[place] [address] [facility] [place] [address] 02/22/2022 15:05:55 02/22/2022 16:00:48 Depressive disorder 05864844 F32.9 major depression but seems to have been stabilized with the increase of nortriptyl line 25 to 50mg Tobacco de pendence syndrome 49140674 F17.200 long discuss re using patch or gumhis stress level should be getting Hypercholesterolemia 136 24552 E78.00 cont rosuvastat in as HDL 45 LDL 73 Anxiety disorder 0659298 06 F41.9 will refill meds and the nortriptyl line will be increased too Pityriasis rosea 7294568 4 L42 Hordeolum externum of upper eyelid of right eye 4062034532 79633 H00.011 64666 Adonis Clemente [facility] [address] [facility], [address] [facility] [place] [address] 05/01/2022 16:11:45 05/02/2022 11:04:38 Degeneration of lumbosacral intervertebral disc 27857944 M51.37 as above has good and bad days depends upon activity has failed PT and having worsening symptoms with radicular pain down the right leg now having trouble walking because of pain and is notably weaker in right leg Hordeolum externum of upper eyelid of right eye 6977028376 63847 H00.011 sees an optho soon has had this for 6 months Pityriasis rosea 4556048 4 L42 almost completely resolved Anxiety disorder F41.9 will refill meds Hypercholesterolemia 136 24946 E78.00 cont rosuvastat in as HDL 45 LDL 73 [id number] Adonis Clemente [facility] [address] [facility],[place] [address] 07/24/2022 10:02:09 07/24/2022 11:35:52 Active or passive immunization 901800554 Z23 patient advised he is due for flu shot Adult heal th examination 394565547 Z00.00 doing well and is hanging in there despite the stress Hypercholesterolemia 136 38235 E78.00 cont rosuvastat in as HDL 45 LDL 73 75564 Adonis Clemente [facility] [address] [facility],[place] [address] 08/14/2022 11:09:18 08/14/2022 14:19:53 Degeneration of lumbosacral intervertebral disc 40377437 M51.37 given a letter for work to be out until next week 47342 Adonis Clemente [facility] Medicine [address] [facility],[place] [employer] [place] [address] 02/16/2023 15:57:09 02/16/2023 16:33:54 Degeneration of lumbosacral intervertebral disc 19547420 M51.37 as above has good and bad days depends upon activity has failed PT and having worsening symptoms with radicular pain down the right leg now having trouble walking because of pain and is notably weaker in right leg Tobacco de pendence syndrome 38014400 F17.200 long discuss re using patch or gumhis stress level should be getting Depressive disorder 354 9007 F32.9 major depression but seems to had been stabili Anxiety disorder F41.9 will refill meds Functional dysphagia 722 219385 F45.8 about the same but no major changes Rosacea 804404257 L71.9 he will call us with the next exacerbati on Vitamin D deficiency 347 60687 E55.9 Hypercholesterolemia 136 98166 E78.00 cont rosuvastat in as HDL 45 LDL 73 98613 Adonis Clemente, [facility] [address] [facility],[place] [address] 03/16/2023 14:45:26 03/16/2023 16:07:20 Hypercholesterolemia 84715050 E78.00 cont rosuvastat in as HDL 45 LDL 73 Herniation of lumbar intervertebral disc with sciatica 0414682584 34175 M51.16 back pain worsening , down the leg left side with leg weakness known disc herniation with nerve root impinge Microscopic hematuria 19 5915223 R31.29 we will need to rechk his father has had this as well but no cancer 12485 Adonis Clemente, [facility] Internal Medicine [address] [facility],[place] [address] 06/11/2023 11:11:55 06/11/2023 12:14:05 Anxiety disorder 288098044 F41.9 will refill meds Degenerati on of lumbosacral intervertebral disc 86894790 M51.37 as above has good and bad days depends upon activity has failed PT and having worsening symptoms with radicular pain down the right leg now having trouble walking because of pain and is notably weaker in right leg Herniation of lumbar intervertebral disc with sciatica 9234252962 29685 M51.16 back pain worsening , down the leg left side with leg weakness known disc herniation with nerve root impinge Hypercholesterolemia 136 52639 E78.00 cont rosuvastat in as HDL 45 LDL 73 Asymptomat ic microscopic hematuria 7352159752 4063190 R31.21 [address] [place]gy in [facility] [address] Adonis Clemente [facility] Internal Medicine [address] [facility],[place] [address] 07/20/2023 14:43:47 07/20/2023 15:19:30 Anxiety disorder 338269045 F41.9 will refill meds Degenerati on of lumbosacral intervertebral disc 17675341 M51.37 as above has good and bad days depends upon activity has failed PT and having worsening symptoms with radicular pain down the right leg now having trouble walking because of pain and is notably weaker in right leg Herniation of lumbar intervertebral disc with sciatica 2373963620 40239 M51.16 back pain worsening , down the leg left side with leg weakness known disc herniation with nerve root impinge Near syncope 092841971 R 55 we will need to have him worked up [id number] Adonis Clemente [facility] Internal Medicine [address] [facility],[place] [address] 09/03/2023 11:08:53 09/03/2023 11:53:51 Hypercholesterolemia 24200479 E78.00 cont rosuvastat in as HDL 45 LDL 73 Near syncope 642591497 R 55 we will need to have him worked up COVID-19 967918627 U07.1 with symptoms resolving we will use an albuterol inhaler and mucinex 013475 Adonis Clemente [facility] Internal Medicine [address] [facility],[place] [address] 10/17/2023 10:21:36 10/17/2023 11:24:43 Anxiety disorder 984787062 F41.9 will refill meds Hypercholesterolemia 136 37259 E78.00 cont rosuvastat in as HDL 45 LDL 73 COVID-19 216711879 U07.1 with symptoms resolving we will use an albuterol inhaler and mucinex Asymptomat ic microscopic hematuria 7290018261 4478625 R31.21 [facility] Syncope 084463494 R55 Benign par oxysmal positional vertigo 934716716 H81.10 Fatigue 65960352 R53.83 [id number] Adonis Clemente [facility] Internal Medicine [address] [facility],[place] [address] 12/14/2023 14:16:35 12/17/2023 08:21:48 Anxiety disorder 222384607 F41.9 will refill meds Fatigue 16704142 R53.83 stable Hypercholesterolemia 136 31239 E78.00 cont rosuvastat in as HDL 45 LDL 73 Asymptomat ic microscopic hematuria 2721307263 4126955 R31.21 will refer to urolgy in [place] Benign par oxysmal positional vertigo 363290075 H81.10 this seemed to be diff we will work him up start with mri Dizziness 979547298 R42 Orthostati c hypotension 14262696 I95.1 [id number] Adonis Clemente [facility] Internal Medicine [address] [facility],[place] [address] 12/21/2023 14:38:59 12/21/2023 15:48:11 Cervical lymphadenopathy 894848891 R59.0 will set up with US and start on amox/medro l combo in the meantime [id number] Adonis Clemente [facility] Internal Medicine [address] [facility],[place] [address] 01/07/2024 16:03:22 01/07/2024 16:36:29 Cervical lymphadenopathy 804744661 R59.0 has resolved will be able to cxl the Orthostati c hypotension 64640507 I95.1 will be waiting for the echo Infection of foot 969716 002 L08.9 will refill 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 7333869654 7168984 T46.6X5A now offf rosuvastat in will chk lipids next visit [id number] Adonis Clemente [facility] Internal Medicine [address] [facility],[place] [address] 02/15/2024 13:50:59 02/15/2024 15:47:15 Depression screening 822025766 Z13.31 negative Asthma 737971874 J45.90 9 stable and doing well with flovent Allergic rhinitis 678049 04 J30.9 Hypercholesterolemia 136 89001 E78.00 cont rosuvastat in as HDL 47 LDL 135 Anxiety 20269664 F41.9 will rx for now as he cannot eat woithout it Anxiety disorder 6430300 06 F41.9 will refill meds [id number] Adonis Clemente [facility] Internal Medicine [address] [facility] [address],[place] [address] 05/26/2024 09:08:27 05/26/2024 13:51:28 Hypercholesterolemia 54597672 E78.00 cont rosuvastat in as HDL 47 LDL 135 Vitamin D deficiency 347 29729 E55.9 will chk lab Degenerati on of lumbosacral intervertebral disc 37541225 M51.37 as above has good and bad days the long flight caused some discomfort depends upon activity has failed PT and having worsening symptoms with radicular pain down the right leg now having trouble walking because of pain and is notably weaker in right leg Asthma 137839035 J45.90 9 stable and doing well with flovent Near syncope 506434321 R 55 we will need to have him worked up Orthostati c hypotension 24911190 I95.1 echo is good still has episodes of lightheade dness and noted sbp is dropped [id number] Adonis Clemente [facility] Internal Medicine [address] [facility],[address] [employer] [place] [address] 06/23/2024 14:50:57 06/23/2024 15:42:28 Hypercholesterolemia 96940462 E78.00 cont rosuvastat in as HDL 47 LDL 139 we will follow Vitamin D deficiency 347 41914 E55.9 will need to start vit d3 1000mg 879504 Adonis Clemente [facility] Internal Medicine [address] [facility],[place] [address] 08/18/2024 10:00:05 08/18/2024 10:58:50 Anxiety disorder 520039505 F41.9 will [place] med[place] of lumbosacral intervertebral disc 64718774 M51.379 cont current tx he has been stable Hypercholesterolemia 136 29450 E78.00 cont rosuvastat in as HDL 47 LDL 139 we will repeat test Asthma 223468999 J45.90 9 stable and doing well with flovent Depression screening 171 987739 Z13.31 negative Wayne hematuria 06661801 5 R31.0 urology never called him for follow up consult will need to repeat [id number] Adonis Clemente [facility] Medicine [address] [facility],[place] [address] 11/21/2024 15:22:56 11/21/2024 16:04:28 Hypercholesterolemia 11516486 E78.00 cont rosuvastat in as HDL 49 LDL 140 we will chk the ct Orthostati c hypotension 62290806 I95.1 echo is good still has episodes of lightheade dness and noted sbp is dropped Asthma 136747072 J45.90 9 stable and doing well with flovent Depression screening 171 473139 Z13.31 negative Allergic rhinitis 875902 04 J30.9 Infection of foot 935093 002 L08.9 will refill [id number] Adonis Clemente [facility] Medicine [address] [facility] [address],[place] [address] 10/24/2024 09:30:38 10/24/2024 14:42:45 Acute bronchitis 27503167 J20.8 start on abx and steroid combo Diarrhea 63075495 R19.7 cont BRAT diet Nausea and vomiting 1693 1999 R11.2 start as needed zofran Cough 00495898 R05.1 use PRN [id number] Adonis Clemente [facility] Medicine [address] [facility] [address],[place] [address] 12/19/2024 14:50:48 12/19/2024 15:26:56 Depression screening 987644525 Z13.31 negative Asthma 674826793 J45.90 9 stable and doing well with flovent Hypercholesterolemia 136 84309 E78.00 cont rosuvastat in as HDL 49 LDL 140 we will chk the ct Tobacco de pendence syndrome 25298970 F17.200 long discuss re using patch or gumhis stress level should be getting Family his tory of malignant neoplasm of lung 988017486 Z80.1 Degenerati on of lumbosacral intervertebral disc 36228029 M51.379 cont current tx he has been stable 374002 Adonis Clemente [facility] Medicine [address] [facility] [address],[place] [address] 02/24/2025 15:05:26 02/24/2025 15:41:37 Depression screening 096023174 Z13.31 negative Asthma 578307756 J45.90 9 stable and doing well with flovent Degenerati on of lumbosacral intervertebral disc 16460926 M51.379 cont current tx he has been stable Hypercholesterolemia 136 41886 E78.00 cont rosuvastat in as HDL 49 LDL 140 we will chk the ct COVID-19 899590551 U07.1 J98.4 2298101006 still feeling lousy will have him get ct scan after cxr [id number] Adonis Cadena Sadie [facility] Internal Medicine [address] [facility] [place] [address] 05/11/2025 14:32:24 05/11/2025 16:49:05 Depression screening 164090385 Z13.31 negative Asthma 653939512 J45.90 9 stable and doing well with flovent Degenerati on of lumbosacral intervertebral disc 33607634 M51.379 cont current tx he has been stable [id number] Adonis Cadena Sadie [facility] Internal Medicine [address] [facility] [address],[place] it[place] [address] 07/15/2025 09:42:36 07/15/2025 10:49:56 Depression screening 768294792 Z13.31 negative Asthma 344593123 J45.90 9 stable and doing well with floventnol onger an issue Herniation of lumbar intervertebral disc with sciatica 4308651136 32129 M51.16 back pain worsening , down the leg left side with leg weakness known disc herniation with nerve root impinge will have him get his usual meds Hypercholesterolemia 136 31208 E78.00 cont rosuvastat in as HDL 49 LDL 140 we will chk the Vitamin D deficiency 347 67413 E55.9 will need to start vit d3 1000mg Health Concerns Section Related Observation LastModified by Organization Detai ls LastModified Time None Recorded Concern Status LastModified by Organization Details LastModified Time None Recorded Advance Directives Directive None Recorded Payers Insurance Date Sequence Insurance Name Policy Number Policy Varma Covered Member ID Varma Member ID Guarantor Name 02/13/2024 1 [facility] Gil Garcia [id number] Gil Garcia 02/13/2024 [employer] Gil Garcia 02/13/2024 [facility] Gil Garcia 07/14/2025 1 [facility] [id number] Gil Garcia [id number] Gil Garcia Notes Date Note Type Note Provider Name and Address Organization Details Recorded Time 11/22/19 25 text/htm l Care Management - HypertensionReported by [facility] self care, patient reportsnot under emotional stress. For severity, patient reportssymptoms are improvinganddoes not interfere with daily activities. For associated symptoms, patient reportsno dizziness,no lightheadedness,no chest pain,no shortness of breath,no palpitations,no edema,no calf muscle cramps,no blurred vision,no confusion,no headaches, andno fatigue. Anxiety/DepressionReported by PatientIFor severity, patient reportsdenies suicidal ideations,able to maintain relationships, anddoes not interfere with activities of daily living. For context, patient reportsno major life stressors. For associated symptoms, patient reportsdenies homicidal ideations,no significant weight gain,no significant weight loss,no visual/auditory hallucinations,no delusions,no shortness of breath,mood good,no anxiety,no crying spells,no panic,no isolation,sleeping well,appetite good,energy good,no apathy, andmaintaining functionality. Care Management - AsthmaReported by [facility] severity, patient reportsimproving,does not interfere with daily activities,does not disturb sleep, anddoes not cause nighttime awakening. For associated symptoms, patient reportsno fever,no fatigue,no irritability,no cough,normal appetite, andno change in productivity.ROS as noted in the HPI Adonis Clemente DO [address] [place] [address], [phone], [facility] Internal Medicine 11/21/2024 15:58:46 12/20/19 25 text/htm l ROS as noted in the HPI here for rechkrelates that he has been doing okreviewed all results Adonis Clemente DO [address] [place], [address], [facility] Medicine 12/19/2024 15:09:58 02/25/20 25 text/htm l Care Management - AsthmaReported by [facility] severity, patient reportsimproving,does not interfere with daily activities,does not disturb sleep, anddoes not cause nighttime awakening. For associated symptoms, patient reportsno fever,no fatigue,no irritability,no cough,normal appetite, andno change in productivity. Care Management - HyperlipidemiaReported by PatientHPIFor control, patient reportsusually well controlled,improving, andat goal. For complications, patient reportsno coronary artery disease,no heart attack,no cardiovascular disease,no pancreatitis, andno stroke. Musculoskeletal PainReported by PatientHPIFor location, patient reportspain is not radiating. For severity, patient reportsimproving. For associated symptoms, patient reportsno fever,no weak limbs,no tingling,no numbness of the legs/feet, andno incontinence. For adl (activities of daily living), patient reportsimprove with medication.ROS as noted in the HPI relates that the most recent covid infection was badrequired the tx of azith and methylpred here for rechkrelates that he has been doing okreviewed all results Adonis Clemente DO [address] [place] [address], [phone], [facility] 02/24/2025 15:40:13 05/11/20 text/htm l Care Management - AsthmaReported by PatientHPIFor severity, patient reportsimproving,does not interfere with daily activities,does not disturb sleep, anddoes not cause nighttime awakening. For associated symptoms, patient reportsno fever,no fatigue,no irritability,no cough,normal appetite, andno change in productivity.ROS as noted in the HPI Adonis Clemente DO [address] [place] [address], [phone], [facility] Internal [facility] 05/11/2025 14:56:18 07/15/20 text/htm l Care Management - AsthmaReported by PatientHPIFor severity, patient reportsimproving,does not interfere with daily activities,does not disturb sleep, anddoes not cause nighttime awakening. For associated symptoms, patient reportsno fever,no fatigue,no irritability,no cough,normal appetite, andno change in productivity.ROS as noted in the HPI here for rechkasthma is ok no major problemsURI last week . much better now reviewed the ct results in detail and we will have him get a repeat in a year Adonis Clemente DO [address] [place] [address], [phone], [facility] Internal Medicine 07/15/2025 10:15:37
--- OUTSIDE RECORDS SUMMARY | 2025-08-28 07:48 | XMS_ITS | Clinical Summary ---
Author Organization [facility] Address [address] [place] [address] Care Team Providers Care Conservation Science Teacher Name Role Phone Unavailable Primary Care Provider [...] - 19+ 3-dose series) 1998 COVID-19 Vaccine (2024-2 6 season) 2025 Pneumococcal Vaccine: Pediat vesna (0-5 Years) and At-Risk Patients (6 to 49 Years) Aged Out No longer eligible b ased on patient's age to complete this topic
--- OUTSIDE RECORDS SUMMARY | 2025-08-28 07:48 | XMS_ITS | Encounter Summary ---
Author Organization [facility] Address [address] [facility] [address] [place] [address] Phone Care Team Providers Care Human Resources Hr Representative Name Role Phone Adonis Noel DO Primary Care Provider [phone] Adonis Noel DO Unavailable Encounter Details Date Type Department Care Team (Late st Contact Info) Description 07/27/2023 Procedure Pass Non-Invasive Cardiology [address] [place] [address] Social History Tobacco Use Types Packs/Day Years [...] with a working camera? Not on file Sex and Gender Information Value Date Recorded Sex Assigned at Male 12/27/2020 3:51 PM EDT Legal Sex Male 9:24 PM EDT Gender Identity Male 12/27/2020 3:51 PM EDT Sexual Orientation Not on file documented as of this encounter Plan of Treatment Not on file documented as of this encounter Visit Diagnoses Not on filedocumented in this encounter Additional Health Concerns Infection Onset Date Last Indicated Resolved Time COVID-19 08/20/2023 08/20/2023 09/10/2023 1:21 AM EST documented as of this encounter Care Teams Human Resources Hr Representative Relationship Specialty Start Date End Date Adonis Noel DO [email or web address] PCP - General 07/03/17 Adonis Noel DO [address] [place] [address] [email or web address] Insurance Assigned Provider 12/22/23 documented as of this encounter Additional Source Comments The information contained in this document represents components of the legal health record. It is not the complete legal health record.[facility]
--- OUTSIDE RECORDS SUMMARY | 2025-08-28 07:48 | XMS_ITS | Encounter Summary ---
Author Organization [facility] Address [address] [facility] [address] [place] [address] Phone Care Team Providers Care Ceramic Capacitor Processor Name Role Phone Adonis Noel DO Primary Care Provider [phone] Adonis Noel DO Unavailable Encounter Details Date Type Department Care Team (Late st Contact Info) Description 07/08/2017 Ancillary Orders [facility] [address] [place] [address] Fernanda Garcia [place] [address] [phone] [email or web address] Bacteriuria Social History Tobacco Use Types Packs/Day Years Used Date Smoking Tobacco: Never Assessed Sex and Gender Information Value Date Recorded Sex Assigned at Male 12/27/2020 3:51 PM EDT Legal Sex Male 9:24 PM EDT Gender Identity Male 12/27/2020 3:51 PM EDT Sexual Orientation Not on file documented as of this encounter Plan of Treatment Not on file documented as of this encounter Results * US Kidneys and Bladder (08/10/2017 9:14 AM EST) Anatomical Region Laterality Modality Abdomen, Kidney Ultrasound 08/10/2017 9:28 AM EST Impressions 08/10/2017 9:30 AM EST Chronic small right upper pole renal cortical cyst without other significant renal pathology apparent. Approximate 12% post void residual bladder volume. POS [id number] Narrative 08/10/2017 9:30 AM EST COMPARISON: 05/03/2016 FINDINGS: The kidneys are within normal limits overall size with right measuring 11.4 x 5.0 cm and left 11.5 x 5.4 cm in a longitudinal plane. The chronic right upper pole cyst is currently measured 14 x 8 x 10 mm. No hydronephrosis, solid renal mass, shadowing intrarenal calculus, or left renal cysts are apparent. The pre-void bladder measured 165.2 cc and the post-void bladder 19.5 cc consistent with a approximate 12% residual volume. No intravesicular mass was identified. Bilateral ureteral jets were documented. Procedure Note Lilia Romero MD - 08/10/2017 COMPARISON: 05/03/2016 FINDINGS: The kidneys are within normal limits overall size with right sxaiemhaq95.4 x 5.0 cm and left 11.5 x 5.4 cm in a longitudinal plane. The chronicright upper pole cyst is currently measured 14 x 8 x 10 mm. Nohydronephrosis, solid renal mass, shadowing intrarenal calculus, or leftrenal cysts are apparent. The pre-void bladder measured 165.2 cc and the post-void bladder 19.5 ccconsistent with a approximate 12% residual volume. No intravesicular masswas identified. Bilateral ureteral jets were documented. IMPRESSION: Chronic small right upper pole renal cortical cyst without othersignificant renal pathology apparent. Approximate 12% post void residualbladder volume. POS [id number] Fernanda MURPHY IM US RENAL Final Resu lt documented in this encounter Visit Diagnoses Diagnosis Bacteriuria Other nonspecific finding on examination of urine documented in this encounter Additional Health Concerns Infection Onset Date Last Indicated Resolved Time CoV-Risk 10/09/2022 10/09/2022 10/20/2022 1:22 AM EST COVID-19 08/20/2023 08/20/2023 09/10/2023 1:21 AM EST documented as of this encounter Care Teams Ceramic Capacitor Processor Relationship Specialty Start Date End Date Adonis Noel DO [email or web address] PCP - General 07/03/17 Adonis Noel DO [address] [place] [address] [email or web address] Insurance Assigned Provider 12/22/23 documented as of this encounter Additional Source Comments The information contained in this document represents components of the legal health record. It is not the complete legal health record.[facility]
--- OUTSIDE RECORDS SUMMARY | 2025-08-28 07:49 | XMS_ITS | Encounter Summary ---
Author Organization [facility] Address [address] [place] [address] Phone Care Team Providers Care Medical Assistant Dermatology Name Role Phone Adonis Noel DO Primary Care Provider [phone] Adonis Noel DO Unavailable Encounter Details Date Type Department Care Team ([facility] st Contact Info) Description 11/22/2018 Procedure Pass [facility] Imaging [address] [place] [address] Social History Tobacco Use Types Packs/Day Years Used Date Smoking Tobacco: Every Day Alcohol Use Standard Drinks/Week Comments Not Currently 0 (1 standard drink = 0.6 oz pur e alcohol) Sex and Gender Information Value Date Recorded [...] documented as of this encounter Care Teams Medical Assistant Dermatology Relationship Specialty Start Date End Date Adonis Noel DO luis PCP - General 07/03/17 Adonis Noel DO [address] [place] [address] [place] [address] [email or web address] Insurance Assigned Provider 12/22/23 documented as of this encounter Additional Source Comments The information contained in this document represents components of the legal health record. It is not the complete legal health record.[facility]
--- OUTSIDE RECORDS SUMMARY | 2025-08-28 07:49 | XMS_ITS | Encounter Summary ---
Author Organization [facility] Address [address] [facility] [address] [place] [address] Phone Care Team Providers Care Tongue And Groove Machine Operator Name Role Phone Adonis Noel DO Primary Care Provider [phone] Adonis Noel DO Unavailable Encounter Details Date Type Department Care Team (Late st Contact Info) Description 03/23/2023 Procedure Pass [facility], [address] [address] Social History Tobacco Use Types Packs/Day Years [...] documented as of this encounter Care Teams Tongue And Groove Machine Operator Relationship Specialty Start Date End Date Adonis Noel DO [email or web address] PCP - General 07/03/17 Adonis Noel DO [address] [place] [address] [email or web address] Insurance Assigned Provider 12/22/23 documented as of this encounter Additional Source Comments The information contained in this document represents components of the legal health record. It is not the complete legal health record.[facility]
--- OUTSIDE RECORDS SUMMARY | 2025-08-28 07:50 | XMS_ITS | Encounter Summary ---
Author Organization [facility] Address [address] [address] Phone Care Team Providers Care Hook And Eye Sewing Machine Operator Name Role Phone Adonis Noel DO Primary Care Provider [phone] Adonis Noel DO Unavailable Reason for Referral * MRI/CAT Scan - Closed Specialty Diagnoses / Procedures Referred By Jazmín porter Referred To Contact Radiology Diagnoses Intervertebral disc disorders with radiculopathy, lumbar region Procedures MRI Lumbar Spine CHG MRI, LUMBAR SPINE CHG MRI, LUMBAR SPINE COMBO CHG MRI, LUMBAR SPINE CONTRAST Adonis Noel DO Phone: tel: fax: [email or web address] Referral ID Status Reason Start Date Expiration Date Visits Re quested Visits Authorized [id number] Closed 06/05/2023 07/05/2023 1 1 Encounter Details Date Type Department Care Team (Late st Contact Info) Description 03/23/2023 Transcribe Orders Virtual Department [address] [place] [address] Adonis Noel DO [address] [facility] [place] [address] [place] [address] [email or web address] Intervertebral disc disorders with radiculopathy, lumbar region (Primary Dx) Social History Tobacco Use Types Packs/Day Years [...] documented as of this encounter Results * MRI LUMBAR SPINE (NEURO) WITHOUT CONTRAST (06/05/2023 8:51 AM EDT) Anatomical Region Laterality Modality L-spine Magnetic Resonan ce 06/08/2023 7:38 PM EDT Impressions 06/08/2023 8:54 PM EDT Multilevel degenerative disease of lumbar spine with mild spinal stenosis at L1- L2, L2-L3, L3-L4. No evidence of severe spinal or foraminal stenosis. Narrative 06/08/2023 8:54 PM EDT MRI LUMBAR SPINE (NEURO) WITHOUT CONTRAST TECHNIQUE: MRI LUMBAR SPINE (NEURO) WITHOUT CONTRAST Multi-sequence, multi-planar MRI of the lumbar spine was performed without intravenous contrast. COMPARISON: MRI LUMBAR SPINE (NEURO) WITHOUT CONTRAST FINDINGS: LUMBAR SPINE: Alignment and Vertebrae: There is straightening lumbar spine curvature with slight retrolisthesis of L5 on S1. No acute compression fracture. Marrow: No bone marrow replacing lesion. Discs and Endplates: Mild disc height loss at L4-L5, L5-S1 similar to prior study. Small endplate Schmorl's nodes at T12, L1, L2. Conus: Normal. Soft Tissues: No paraspinal mass or collection. There is mild atrophy of lower lumbar spinal musculature. Other Findings: None. Findings by level: T12-L1: Mild disc bulge, mild bilateral facet arthropathy. No spinal or foraminal stenosis. L1-L2: Mild disc bulge. Mild spinal stenosis, unchanged. No foraminal narrowing. L2-L3: Small central annular fissure and mild disc bulge. Mild spinal stenosis, unchanged. No foraminal narrowing. L3-L4: Mild disc bulge. Mild spinal stenosis, unchanged. No foraminal narrowing. L4-L5: Mild disc bulge and small central annular fissure with small disc protrusion. No significant spinal stenosis. Bilateral recess stenosis without nerve impingement. Mild bilateral foraminal narrowing. L5-S1: Small central disc protrusion. The protruded disc abuts the descending left S1 nerve without significant displacement. No spinal stenosis. Bilateral foraminal endplate osteophytes with mild left foraminal narrowing. Procedure Note Magen Yin MD, PhD - 06/08/2023 MRI LUMBAR SPINE (NEURO) WITHOUT CONTRAST TECHNIQUE: MRI LUMBAR SPINE (NEURO) WITHOUT CONTRAST Multi-sequence, multi-planar MRI of the lumbar spine was performed withoutintravenous contrast. COMPARISON: MRI LUMBAR SPINE (NEURO) WITHOUT CONTRAST FINDINGS: LUMBAR SPINE: Alignment and Vertebrae: There is straightening lumbar spine curvaturewith slight retrolisthesis of L5 on S1. No acute compression fracture. Marrow: No bone marrow replacing lesion. Discs and Endplates: Mild disc height loss at L4-L5, L5-S1 similar toprior study. Small endplate Schmorl's nodes at T12, L1, L2. Conus: Normal. Soft Tissues: No paraspinal mass or collection. There is mild atrophy oflower lumbar spinal musculature. Other Findings: None. Findings by level: T12-L1: Mild disc bulge, mild bilateral facet arthropathy. No spinal orforaminal stenosis. L1-L2: Mild disc bulge. Mild spinal stenosis, unchanged. No foraminalnarrowing. L2-L3: Small central annular fissure and mild disc bulge. Mild spinalstenosis, unchanged. No foraminal narrowing. L3-L4: Mild disc bulge. Mild spinal stenosis, unchanged. No foraminalnarrowing. L4-L5: Mild disc bulge and small central annular fissure with small discprotrusion. No significant spinal stenosis. Bilateral recess stenosiswithout nerve impingement. Mild bilateral foraminal narrowing. L5-S1: Small central disc protrusion. The protruded disc abuts thedescending left S1 nerve without significant displacement. No spinalstenosis. Bilateral foraminal endplate osteophytes with mild leftforaminal narrowing. IMPRESSION: Multilevel degenerative disease of lumbar spine with mild spinal stenosisat L1- L2, L2-L3, L3-L4. No evidence of severe spinal or foraminalstenosis. us Adonis Noel DO IMG MR XSPECIALTY Final Result documented in this encounter Visit Diagnoses Diagnosis Intervertebral disc disorders with radiculopathy, lumbar region- Primary Intervertebral disc disorders with radiculopathy, lumbar region documented in this encounter Additional Health Concerns Infection Onset Date Last Indicated Resolved Time COVID-19 08/20/2023 08/20/2023 09/10/2023 1:21 AM EST documented as of this encounter Care Teams Hook And Eye Sewing Machine Operator Relationship Specialty Start Date End Date Adonis Noel DO luis PCP - General 07/03/17 Adonis Noel DO [address] [place] [address] luis Insurance Assigned Provider 12/22/23 documented as of this encounter Additional Source Comments The information contained in this document represents components of the legal health record. It is not the complete legal health record.[facility]
--- OUTSIDE RECORDS SUMMARY | 2025-08-28 07:51 | XMS_ITS | Encounter Summary ---
Author Organization [facility] Address [address] [facility] [address] [place] [address] Phone Care Team Providers Care Email Campaign Specialist Name Role Phone YaseminAdonis shah Primary Care Provider [phone] YaseminAdonis shah Unavailable Encounter Details Date Type Department Care Team (Late st Contact Info) Description 11/12/2019 Transcribe Orders Virtual Department [address] [place] [address] Adonis Noel DO [address] [facility] [address] [place], [place] [id number] [email or web address] Palpitations (Primary Dx) Social History Tobacco Use Types [...] documented as of this encounter Results * ECG 12-LEAD (11/17/2019 11:04 AM EST) Ventricular Rate EKG/MIN 90 BPM [facility] Atrial Rate 90 BPM [facility] ND Interval 170 ms [facility] QRS Duration 86 ms [facility] QT Interval 360 ms [facility] QTC Interval 440 ms [facility] P Steen 68 degrees [facility] R Wave Steen 91 degrees [facility] T Wave Steen 67 degrees [facility] 11/17/2019 11:0 4 AM EST 11/17/2019 5:31 PM EST Narrative [facility] - 11/17/2019 5:31 PM EST Normal sinus rhythm Rightward axis Borderline ECG No previous ECGs available Confirmed by TEO IRAHETA MD ([id number]) on 11/17/2019 5:31:20 PM us Adonis Noel DO ECG ORDERABLES Final Result [facility] documented in this encounter Visit Diagnoses Diagnosis Palpitations- Primary Palpitations documented in this encounter Additional Health Concerns Infection Onset Date Last Indicated Resolved Time CoV-Risk 10/09/2022 10/09/2022 10/20/2022 1:22 AM EST COVID-19 08/20/2023 08/20/2023 09/10/2023 1:21 AM EST documented as of this encounter Care Teams Email Campaign Specialist Relationship Specialty Start Date End Date Adonis Noel DO luis PCP - General 07/03/17 Adonis Noel DO [address] [place] [address] luis Insurance Assigned Provider 12/22/23 documented as of this encounter Additional Source Comments The information contained in this document represents components of the legal health record. It is not the complete legal health record.[facility]
--- OUTSIDE RECORDS SUMMARY | 2025-08-28 07:51 | XMS_ITS | Encounter Summary ---
Author Organization [facility] Address [address] [place] [address] Phone Care Team Providers Care Supervisor Customer Records Division Name Role Phone Adonis Noel DO Primary Care Provider [phone] Adonis Noel DO Unavailable Encounter Details Date Type Department Care Team (Latest Contact Info) Description 10/13/2020 Transcribe Orders Virtual Department [address] [place] [address] Ajay Parson MD [address] [place] [address], [address] [address] [email or web address] Other microscopic hematuria (Primary Dx) Social History Tobacco Use Types [...] encounter Results * US Kidneys and Bladder (11/03/2020 8:29 AM EST) Anatomical Region Laterality Modality Abdomen, Kidney Ultrasound 11/03/2020 8:31 AM EST Impressions 11/03/2020 8:35 AM EST Bilateral simple renal cysts. Otherwise normal and without significant interval change. Narrative 11/03/2020 8:35 AM EST US KIDNEYS AND BLADDER TECHNIQUE: Ultrasound evaluation of the KIDNEYS AND BLADDER. Volumetric sweeps were obtained and reviewed. COMPARISON: 09/19/2019 FINDINGS: RIGHT KIDNEY: The right kidney measures 12.17 largest dimension. Parenchyma is within normal limits. No hydronephrosis. There are findings consistent with an upper pole cortical simple renal cyst measuring 1.2 SAG x1.0 AP x1.3 TR centimeters in size. LEFT KIDNEY: The left kidney measures 11.0 cm in largest dimension. Parenchyma is within normal limits. No hydronephrosis. There is a lower pole simple renal cyst that measures 1.0 SAG x0.8 AP x0.8 TR centimeters in size. BLADDER: Unremarkable. Bilateral ureteral jets are noticed. Procedure Note Fletcher Gavin MD - 11/03/2020 US KIDNEYS AND BLADDER TECHNIQUE: Ultrasound evaluation of the KIDNEYS AND BLADDER. Volumetric sweeps wereobtained and reviewed. COMPARISON: 09/19/2019 FINDINGS: RIGHT KIDNEY: The right kidney measures 12.17 largest dimension.Parenchyma is within normal limits. No hydronephrosis. There are findingsconsistent with an upper pole cortical simple renal cyst measuring 1.2 SAGx1.0 AP x1.3 TR centimeters in size. LEFT KIDNEY: The left kidney measures 11.0 cm in largest dimension.Parenchyma is within normal limits. No hydronephrosis. There is a lowerpole simple renal cyst that measures 1.0 SAG x0.8 AP x0.8 TR centimetersin size. BLADDER: Unremarkable. Bilateral ureteral jets are noticed. IMPRESSION: Bilateral simple renal cysts. Otherwise normal and without significantinterval change. Ajay Parson MD [facility] RENAL Final Result documented in this encounter Visit Diagnoses Diagnosis Other microscopic hematuria- Primary Other microscopic hematuria documented in this encounter Additional Health Concerns Infection Onset Date Last Indicated Resolved Time CoV-Risk 10/09/2022 10/09/2022 10/20/2022 1:22 AM EST COVID-19 08/20/2023 08/20/2023 09/10/2023 1:21 AM EST documented as of this encounter Care Teams Supervisor Customer Records Division Relationship Specialty Start Date End Date Adonsi Noel DO luis PCP - General 10/17/17 Adonis Noel DO [address] [place] [address] [email or web address] Insurance Assigned Provider 12/22/23 documented as of this encounter Additional Source Comments The information contained in this document represents components of the legal health record. It is not the complete legal health record.[facility]
--- OUTSIDE RECORDS SUMMARY | 2025-08-28 07:52 | XMS_ITS | Encounter Summary ---
Author Organization [facility] Address [address] [place] [address] Phone Care Team Providers Care Restaurant Associate Name Role Phone Adonis Noel DO Primary Care Provider [phone] Adonis Noel DO Unavailable Encounter Details Date Type Department Care Team (Late st Contact Info) Description 11/14/2018 Procedure Pass [address] [place] [address] Social History Tobacco Use Types Packs/Day Years [...] documented as of this encounter Care Teams Restaurant Associate Relationship Specialty Start Date End Date Adonis Noel DO luis PCP - General 07/03/17 Adonis Noel DO [address] [facility] [address] [place] [address] luis Insurance Assigned Provider 12/22/23 documented as of this encounter Additional Source Comments The information contained in this document represents components of the legal health record. It is not the complete legal health record.[facility]
--- OUTSIDE RECORDS SUMMARY | 2025-08-28 07:52 | XMS_ITS | Encounter Summary ---
Author Organization [facility] Address [address] [place] [address] Phone Care Team Providers Care Director Agency & Strategic Partnerships Name Role Phone Adonis Noel DO Primary Care Provider [phone] Adonis Noel DO Unavailable Encounter Details Date Type Department Care Team (Latest Contact Info) Description 07/29/2019 Transcribe Orders Virtual Department [address] [place] [id number] Ajay Parson MD [address] [place] [address], [address] [address] [email or web address] Other microscopic hematuria (Primary Dx); Cyst of kidney, acquired Social History Tobacco Use Types Packs/Day Years [...] encounter Results * US Kidneys and Bladder (09/19/2019 8:13 AM EST) Anatomical Region Laterality Modality Abdomen, Kidney Ultrasound 09/19/2019 8:22 AM EST Impressions 09/19/2019 8:25 AM EST *Limited due to bowel gas.* 1. Small postvoid bladder residual. 2. No hydronephrosis or nephrolithiasis. 3. Stable 1.3 cm right upper renal pole cyst as above. POS [id number] Narrative 09/19/2019 8:25 AM EST COMPARISON: Renal bladder ultrasound 08/06/2017. CT abdomen pelvis 04/06/2014. RENAL AND BLADDER ULTRASOUND FINDINGS: *Imaging limited due to bowel gas.* Bladder: Prevoid volume is 331 cc. Postvoid volume is 21 cc or 6%. Ureteral jets are not visualized. No bladder wall thickening, masses or calculi. Kidneys: Right kidney measures 11 x 5 cm. No hydronephrosis, masses or calculi. There is a stable 1.3 cm upper renal pole cyst. This cannot be characterize as simple by ultrasound due to internal echoes. Cortical echogenicity and thickness are normal. No perinephric fluid collections. Left kidney measures 11 x 6 cm. No hydronephrosis, masses or calculi. Cortical echogenicity and thickness are normal. No perinephric fluid collections. Procedure Note Arcelia Gibbons MD - 09/19/2019 COMPARISON: Renal bladder ultrasound 08/06/2017. CT abdomen [id number]. RENAL AND BLADDER ULTRASOUND FINDINGS: *Imaging limited due to bowel gas.* Bladder: Prevoid volume is 331 cc. Postvoid volume is 21 cc or 6%.Ureteral jets are not visualized. No bladder wall thickening, masses orcalculi. Kidneys: Right kidney measures 11 x 5 cm. No hydronephrosis, masses or calculi.There is a stable 1.3 cm upper renal pole cyst. This cannot becharacterize as simple by ultrasound due to internal echoes. Corticalechogenicity and thickness are normal. No perinephric fluidcollections. Left kidney measures 11 x 6 cm. No hydronephrosis, masses or calculi.Cortical echogenicity and thickness are normal. No perinephric fluidcollections. IMPRESSION: *Limited due to bowel gas.* 1. Small postvoid bladder residual. 2. No hydronephrosis or nephrolithiasis. 3. Stable 1.3 cm right upper renal pole cyst as above. POS [id number] Ajay Parson MD [facility] RENAL Final Result documented in this encounter Visit Diagnoses Diagnosis Other microscopic hematuria- Primary Cyst of kidney, acquired Acquired cyst of kidney Other microscopic hematuria Cyst of kidney, acquired Acquired cyst of kidney documented in this encounter Additional Health Concerns Infection Onset Date Last Indicated Resolved Time CoV-Risk 10/09/2022 10/09/2022 10/20/2022 1:22 AM EST COVID-19 08/20/2023 08/20/2023 09/10/2023 1:21 AM EST documented as of this encounter Care Teams Director Agency & Strategic Partnerships Relationship Specialty Start Date End Date Adonis Noel DO PCP - General 07/03/17 Adonis Noel DO [address] [place] [address] luis Insurance Assigned Provider 12/22/23 documented as of this encounter Additional Source Comments The information contained in this document represents components of the legal health record. It is not the complete legal health record.[facility]
--- OUTSIDE RECORDS SUMMARY | 2025-08-28 07:52 | XMS_ITS | Encounter Summary ---
Author Organization [facility] Address [address] [place] [address] [place] [address] Phone Care Team Providers Care Deli Cutter Slicer Name Role Phone Adonis Noel DO Primary Care Provider [phone] Adonis Noel DO Unavailable Reason for Referral * MRI/CAT Scan - Closed Specialty Diagnoses / Procedures Referred By Contac t Referred To Contact Procedures MRI Spine (Bone) Outside (No Interpretation) System, Provider Not In, [facility] [employer] [address] [address] Referral ID Status Reason Start Date Expiration Date Visits Re quested Visits Authorized [id number] Closed 11/22/2018 11/22/2019 1 1 Encounter Details Date Type Department Care Team (Late st Contact Info) Description 11/22/2018 Ancillary Orders [facility],Outside Imaging [address] [place] [address] System, Provider Not In, [employer] [address] Social History Tobacco Use Types Packs/Day Years [...] as of this encounter Results * MRI Spine (Bone) [...] documented as of this encounter Care Teams Deli Cutter Slicer Relationship Specialty Start Date End Date Adonis Noel DO luis PCP - General 07/03/17 Adonis Noel DO [address] [place] [address] luis Insurance Assigned Provider 12/22/23 documented as of this encounter Additional Source Comments The information contained in this document represents components of the legal health record. It is not the complete legal health record.[facility]
--- OUTSIDE RECORDS SUMMARY | 2025-08-28 07:52 | XMS_ITS | Encounter Summary ---
Author Organization [facility] Address [address] [place] [address] Phone Care Team Providers Care Financial Analyst Name Role Phone Adonis Noel DO Primary Care Provider [phone] Adonis Noel DO Unavailable Reason for Referral * MRI/CAT Scan - Closed Specialty Diagnoses / Procedures Referred By Jazmín porter Referred To Contact Radiology Diagnoses Degeneration of intervertebral disc of lumbosacral region Procedures MRI Lumbar Spine Adonis Noel DO Phone: tel: fax: mailto:[email or web address] Referral ID Status Reason Start Date Expiration Date Visits Re quested Visits Authorized [id number] Closed 11/18/2018 12/18/2018 1 1 Encounter Details Date Type Department Care Team (Late st Contact Info) Description 11/14/2018 Ancillary Orders Virtual Department [address] [place] [address] Adonis Noel DO [address] [facility] [place] [address] [email or web address] Degeneration of intervertebral disc of lumbosacral region Social History Tobacco Use Types Packs/Day Years [...] * MRI LUMBAR SPINE (NEURO) WITHOUT CONTRAST (11/27/2018 1:01 PM EDT) Anatomical Region Laterality Modality L-spine Magnetic Resonan ce 11/27/2018 8:16 PM EDT Impressions 11/27/2018 10:10 PM EDT Degenerative disc disease as described above, result in mild canal stenosis at multiple levels. Mild/moderate neuroforaminal stenosis on the left at L5-S1. Left central disc protrusion at L5-S1 contacts the left S1 traversing nerve root. POS - [id number] Narrative 11/27/2018 10:10 PM EDT EXAM: MRI LUMBAR SPINE (NEURO) WITHOUT INTRAVENOUS CONTRAST COMPARISON: Radiographs on June 13, 2018 HISTORY: Degeneration of intervertebral disc of lumbosacral region TECHNIQUE: Exam performed on a 1.5 Blanca high-field MRI scanner. Magnetic resonance imaging of the lumbar spine was performed WITHOUT injected contrast using standard department protocols. Sagittal T1, T2 and STIR, axial T1 and T2 sequences were obtained. FINDINGS: ALIGNMENT: Straightening of the lumbar lordosis. No anterior or posterior subluxations. VERTEBRAL BODIES: Vertebral body heights are maintained. Small Schmorl's nodes at multiple levels. Bone marrow signal pattern is within normal limits. INTERVERTEBRAL DISCS: Desiccation changes are noted in all included discs, except L2-L3 and L3-L4. Posterior annular fissures at L4-L5 and L5-S1. SPINAL CORD/CONUS: Included spinal cord has normal caliber and signal characteristics. The conus terminates normally at L1-L2. Level by level analysis yields the following: T11-T12: No disc herniation. No significant canal or neuroforaminal stenosis. T12-L1: Mild bulging disc. No significant canal or neuroforaminal stenosis. L1-2: Bulging disc contributes to mild canal stenosis. No significant neuroforaminal stenosis. L2-3: Bulging disc contributes to mild canal stenosis. No significant neuroforaminal stenosis. L3-4: Bulging disc contributes to mild canal stenosis. No significant neuroforaminal stenosis. L4-5: Combination of bulging disc with superimposed central disc protrusion and hypertrophy of posterior elements results in mild canal stenosis and mild bilateral neuroforaminal stenosis. L5-S1: Combination of bulging disc with superimposed left central disc protrusion and hypertrophy of posterior elements contributes to mild canal stenosis, mild/moderate left neuroforaminal stenosis and mild right neuroforaminal stenosis. The protruded disc contacts the left S1 traversing nerve root. OTHERS:Visualized portions of the retroperitoneal structures are grossly unremarkable. Posterior paraspinal soft tissues are unremarkable. Procedure Note Westley Carpenter MD - 11/27/2018 EXAM: MRI LUMBAR SPINE (NEURO) WITHOUT INTRAVENOUS CONTRAST COMPARISON: Radiographs on June 13, 2018 HISTORY: Degeneration of intervertebral disc of lumbosacral region TECHNIQUE: Exam performed on a 1.5 Blanca high-field MRI scanner. Magneticresonance imaging of the lumbar spine was performed WITHOUT injectedcontrast using standard department protocols. Sagittal T1, T2 and STIR,axial T1 and T2 sequences were obtained. FINDINGS: ALIGNMENT: Straightening of the lumbar lordosis. No anterior or posteriorsubluxations. VERTEBRAL BODIES: Vertebral body heights are maintained. Small Schmorl'snodes at multiple levels. Bone marrow signal pattern is within normallimits. INTERVERTEBRAL DISCS: Desiccation changes are noted in all included discs,except L2-L3 and L3-L4. Posterior annular fissures at L4-L5 and L5-S1. SPINAL CORD/CONUS: Included spinal cord has normal caliber and signalcharacteristics. The conus terminates normally at L1-L2. Level by level analysis yields the following: T11-T12: No disc herniation. No significant canal or neuroforaminalstenosis. T12-L1: Mild bulging disc. No significant canal or neuroforaminalstenosis. L1-2: Bulging disc contributes to mild canal stenosis. No significantneuroforaminal stenosis. L2-3: Bulging disc contributes to mild canal stenosis. No significantneuroforaminal stenosis. L3-4: Bulging disc contributes to mild canal stenosis. No significantneuroforaminal stenosis. L4-5: Combination of bulging disc with superimposed central discprotrusion and hypertrophy of posterior elements results in mild canalstenosis and mild bilateral neuroforaminal stenosis. L5-S1: Combination of bulging disc with superimposed left central discprotrusion and hypertrophy of posterior elements contributes to mild canalstenosis, mild/moderate left neuroforaminal stenosis and mild rightneuroforaminal stenosis. The protruded disc contacts the left [id number] nerve root. OTHERS:Visualized portions of the retroperitoneal structures are grosslyunremarkable. Posterior paraspinal soft tissues are unremarkable. IMPRESSION: Degenerative disc disease as described above, result in mild canalstenosis at multiple levels. Mild/moderate neuroforaminal stenosis on theleft at L5-S1. Left central disc protrusion at L5-S1 contacts the left [id number] nerve root. POS - [id number] us Adonis Ava Sadie MARRUFO IMG MR XSPECIALTY Final Result documented in this encounter Visit Diagnoses Diagnosis Degeneration of intervertebral disc of lumbosacral region Degeneration of intervertebral disc of lumbosacral region documented in this encounter Additional Health Concerns Infection Onset Date Last Indicated Resolved Time CoV-Risk 10/09/2022 10/09/2022 10/20/2022 1:22 AM EST COVID-19 08/20/2023 08/20/2023 09/10/2023 1:21 AM EST documented as of this encounter Care Teams Financial Analyst Relationship Specialty Start Date End Date Adonis Noel DO luis PCP - General 07/03/17 Adonis Noel DO [address] [place] [address] luis Insurance Assigned Provider 12/22/23 documented as of this encounter Additional Source Comments The information contained in this document represents components of the legal health record. It is not the complete legal health record.[facility]
--- OUTSIDE RECORDS SUMMARY | 2025-08-28 07:52 | XMS_ITS | Clinical Summary ---
Author Organization [facility] Address [address] [facility] [address] [place], [place] [id number] Phone Care Team Providers Care Manufacturing Production Technician Name Role Phone YaseminAdonis shah Primary Care Provider [phone] YaseminAdonis shah Unavailable Allergies No known active allergies Medications ALPRAZolam (XANAX) 1 MG tablet 1 Active omeprazole (PRILOSEC) 20 MG capsule Take by mouth daily. 1 Active oxyCODONE 5 MG immediate release tablet TAKE 1 TABLET BY MOUTH FOUR TIMES DAILY NEEDED 1 Active rosuvastatin (CRESTOR) 5 MG tablet Take 5 mg by mouth daily. 1 Active clindamycin-preston zoyl peroxide (BENZACLIN) gel APPLY TOPICALLY TO THE AFFECTED AREA TWICE DAILY IN THE MORNING AND IN THE EVENING 2 Active erythromycin (ROMYCIN) ophthalmic ointment 2 Active triamcinolone acetonide 0.1 % ointment 2 Active Active Problems No known active problems Immunizations Immunization Administration Dates Next Due Influenza Quadrivalent MDCK Preservative Free IM 08/17/2023 Influenza Quadrivalent Preservative Free IM 07/19,09/14/2021 Influenza Trivalent Adjuvanted Preservative free IM 05/31/2016 Influenza, Unspecified Formulation 06/23/2010, Tdap 04/25/2020 Social History Tobacco Use Types Packs/Day Years Used Date Smoking Tobacco: Every Day Tobacco Cessation:Ready to Q uit: Not Asked; Counseling Given: Not Answered Alcohol Use Standard Drinks/Week Comments Not Currently [...] PM EDT Sexual Orientation Not on file Last Filed Vital Signs Vital Sign Reading Time Taken Comments Blood Pressure 118/80 11/16/2023 1:52 PM EST Pulse 72 11/16/2023 1:52 PM EST Temperature 36.9 C (98.4 F) 11/16/2023 11:09 AM EST Respiratory Rate 18 11/16/2023 1:52 PM EST Oxygen Saturation 98% 11/16/2023 1:52 PM EST Inhaled Oxygen Concentration - - Weight 90.7 kg (200 lb) 01/16/2024 1:01 PM EDT Height 175.3 cm (5' 9 ) 01/16/2024 1:01 PM EDT Body Mass Index 29.53 01/16/2024 1:01 PM EDT Plan of Treatment Health Maintenance Due Date Last Done Comments DEPRESSION SCREENING 1991 SMOKING Hx and SMOKELESS TOBACCO SCREENING 1992 HEPATITIS C SCREENING 1997 HIV ONE-TIME SCREENING (18-65 YEARS) 1997 PNEUMOCOCCAL VACCINES (0-49 years) (1 of 2 - PCV) 1998 COLOGUARD 2024 COLONOSCOPY 2024 COLORECTAL CANCER SCREENING 2024 FIT TEST 2024 FOBT 2024 SIGMOIDOSCOPY 2024 VIRTUAL COLONOSCOPY 2024 INFLUENZA VACCINE (#1) 2025 , 08/08/2022, 09/14/2021, Additional history exists COVID-19 VACCINE ( season) 2025 08/16/2022, 09/07/2021, 01/08/2021, Additional history exists SCREENING FOR DIABETES 06/18/2027 06/18/2024 LIPID PANEL 06/18/2029 06/18/2024, 01/16, 07/10/2023, Additional history exists Adult Td,Tdap Booster 04/25/2030 04/25/2020 HEPATITIS A VACCINES Aged Out No long er eligible based on patient's age to complete this topic HIB VACCINES Aged Out No longer eligi ble based on patient's age to complete this topic MENINGOCOCCAL VACCINES (ACWY) Aged Out No longer eligible based on patient's age to complete this topic MENINGOCOCCAL VACCINES (B) Aged Out N o longer eligible based on patient's age to complete this topic Medical Devices Not on file Procedures Procedure Name Priority Date/Time Associated Diagnosis Comments LIPID PANEL Routine 06/18/2024 10:00 AM EDT Pure hypercholesterolemia Vitamin D deficiency from Last 3 Months or Most Recently Relevant to Health Maintenance Results * (ABNORMAL) Lipid panel (06/18/2024 10:00 AM EDT) HDL 47 mg/dL [facility] Comment: Interpretation <40 mg/dL: Low HDL cholesterol (major risk factor for CHD) Greater than or equal to 60 mg/dL: High HDL cholesterol ( negative risk factor for CHD) HDL - cholesterol is affected by a number of factors, e.g. smoking, excerise, hormones, sex and age. CHOLESTEROL 213 0 - 240 mg/dL [facility] TRIGLYCERIDES 134 30 - 160 mg/dL [facility] LDL 139(H) 50 - 129 mg/dL [facility] Comment: LDL levels in terms of risk for coronary heart disease: <100 mg/dL: Optimal 100-129 mg/dL: Near or above optimal 130-159 mg/dL: Borderline high 160-189 mg/dL: High >190 mg/dL: Very High CARDIAC RISK RATIO 4.5 3.4 - 5.0 [facility] Blood 06/18/2024 10:0 0 AM EDT 06/18/2024 10:03 AM EDT us Adonis Noel DO LAB BLOOD BKR ORDERABLES Final R esult [facility] [address] [place] [address] from Last 3 Months or Most Recently Relevant to Health Maintenance Insurance [facility] [place] [address] [address] [address] [place] [address] [place] [address] [place] [address] [employer] Care Teams Manufacturing Production Technician Relationship Specialty Start Date End Date Adonis Noel DO luis PCP - General 07/03/17 Adonis Noel DO [address] [facility] [address] luis Insurance Assigned Provider 12/22/23 Additional Source Comments The information contained in this document represents components of the legal health record. It is not the complete legal health record.[facility]
--- OUTSIDE RECORDS SUMMARY | 2025-08-28 07:53 | XMS_ITS | Encounter Summary ---
Author Organization [facility] Address [address] [facility] [address] [place] [phone] Phone Care Team Providers Care Plant Propagator Name Role Phone Adonis Noel DO Primary Care Provider [phone] Adonis Noel DO Unavailable Encounter Details Date Type Department Care Team (Late st Contact Info) Description 01/08/2024 Procedure Pass [facility], [address] [address] Social History Tobacco Use Types Packs/Day Years [...] Diagnoses Not on filedocumented in this encounter Care Teams Plant Propagator Relationship Specialty Start Date End Date Adonis Noel DO luis PCP - General 07/03/17 Adonis Noel DO [address] [place] [address] luis Insurance Assigned Provider 12/22/23 documented as of this encounter Additional Source Comments The information contained in this document represents components of the legal health record. It is not the complete legal health record.[facility]
--- OUTSIDE RECORDS SUMMARY | 2025-08-28 07:53 | XMS_ITS | Encounter Summary ---
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 (Primary Dx); Other disorders of lung Social History Tobacco Use Types Packs/Day Years [...] as of this encounter Plan of Treatment Scheduled Orders Name Type Priority Associated Diagnoses Orde r Schedule XR Chest Imaging Routine COVID-19 with pulmonary comorbidity Other disorders of lung Expected: 02/25/2025, Expires: 02/25/2026 documented as of this encounter Visit Diagnoses Diagnosis COVID-19 with pulmonary comorbidity- Primary Other disorders of lung documented in this encounter Care Teams Relay Shop Tester Relationship Specialty Start Date End Date Adonis Noel DO [email or web address] PCP - General 07/03/17 Adonis Noel DO [address] [place] [address] [email or web address] Insurance Assigned Provider 12/22/23 documented as of this encounter Additional Source Comments The information contained in this document represents components of the legal health record. It is not the complete legal health record.[facility]
--- OUTSIDE RECORDS SUMMARY | 2025-08-28 07:54 | XMS_ITS | Encounter Summary ---
Author Organization [facility] Address [address] [place] [address] Phone Care Team Providers Care Ec Teacher Name Role Phone Adonis Noel DO Primary Care Provider [phone] Adonis Noel DO Unavailable Reason for Referral * Physical Therapy (Routine) - Closed Specialty Diagnoses / Procedures Referred By Contgina t Referred To Contact Physical Therapy Diagnoses Encounter for rehabilitation System, Provider Not In, PhD [id number] [place] [address] Phone: tel: Referral ID Status Reason Start Date Expiration Date Visits Re quested Visits Authorized [id number] Closed 09/24/2018 09/24/2019 30 30 Encounter Details Date Type Department Care Team (Late st Contact Info) Description 09/24/2018 Transcribe Orders [facility] [address] [place] [address] Adonis Noel DO [address] [facility] [place] [address] [email or web address] Encounter for rehabilitation (Primary Dx) Social History Tobacco Use Types Packs/Day Years Used Date Smoking Tobacco: Never Assessed Sex and Gender Information Value Date Recorded Sex Assigned at Male 12/27/2020 3:51 PM EDT Legal Sex Male 9:24 PM EDT Gender Identity Male 12/27/2020 3:51 PM EDT Sexual Orientation Not on file documented as of this encounter Plan of Treatment Scheduled Referrals Name Type Priority Associated Diagnoses Orde r Schedule Ambulatory referral to [facility] Physical Therapy Outpatient Referral Routine Encounter for rehabilitation Ordered: 09/24/2018 documented as of this encounter Visit Diagnoses Diagnosis Encounter for rehabilitation- Primary documented in this encounter Additional Health Concerns Infection Onset Date Last Indicated Resolved Time CoV-Risk 10/09/2022 10/09/2022 10/20/2022 1:22 AM EST COVID-19 08/20/2023 08/20/2023 09/10/2023 1:21 AM EST documented as of this encounter Care Teams Ec Teacher Relationship Specialty Start Date End Date Adonis Noel DO luis PCP - General 07/03/17 Adonis Noel DO [address] [place] [address] [email or web address] Insurance Assigned Provider 12/22/23 documented as of this encounter Additional Source Comments The information contained in this document represents components of the legal health record. It is not the complete legal health record.[facility]
--- OUTSIDE RECORDS SUMMARY | 2025-08-28 07:54 | XMS_ITS | Encounter Summary ---
Author Organization [facility] Address [address] [facility] [address] [place] [id number] Phone Care Team Providers Care Deputy K 9 Name Role Phone YaseminAdonis shah Primary Care Provider [phone] Adonis Noel Unavailable Encounter Details Date Type Department Care Team (Late st Contact Info) Description 06/13/2018 Ancillary Orders Virtual Department [address] [place] [address] Adonis Noel DO [address] [facility] [place] [address] [place] [address] [email or web address] Other intervertebral disc degeneration, lumbar region Social History Tobacco Use Types Packs/Day [...] documented as of this encounter Results * XR LUMBOSACRAL SPINE MINIMUM 6 VIEWS, INCLUDES BENDING VIEWS (06/13/2018 1:36 PM EDT) Anatomical Region Laterality Modality L-spine Radiographic Chayo ging 06/13/2018 1:41 PM EDT Impressions 06/13/2018 1:46 PM EDT 1. Minimal retrolisthesis of L4 on L5 on the flexed position. 2. Minimal degenerative changes. POS - [id number] Narrative 06/13/2018 1:46 PM EDT EXAM: XR LUMBOSACRAL SPINE MINIMUM 6 VIEWS, INCLUDES BENDING VIEWS COMPARISON: None FINDINGS: Straightening of the normal lumbar lordosis. No anterior or posterior subluxations on neutral position. Minimal posterior subluxation of L4 on L5 on the flexed position. Vertebral body heights and disc spaces are preserved. Very tiny marginal osteophytes noted at T12-L1 and L4-L5. Bilateral sacroiliac joints are congruent and symmetric in appearance. Nonobstructive bowel gas pattern. Procedure Note Westley Carpenter MD - 06/13/2018 EXAM: XR LUMBOSACRAL SPINE MINIMUM 6 VIEWS, INCLUDES BENDING VIEWS COMPARISON: None FINDINGS: Straightening of the normal lumbar lordosis. No anterior or posteriorsubluxations on neutral position. Minimal posterior subluxation of L4 onL5 on the flexed position. Vertebral body heights and disc spaces arepreserved. Very tiny marginal osteophytes noted at T12-L1 and L4-L5.Bilateral sacroiliac joints are congruent and symmetric in appearance.Nonobstructive bowel gas pattern. IMPRESSION: 1. Minimal retrolisthesis of L4 on L5 on the flexed position. 2. Minimal degenerative changes. POS - [id number] Adonis Noel DO IMG XR SPINE Final Result documented in this encounter Visit Diagnoses Diagnosis Other intervertebral disc degeneration, lumbar region Other intervertebral disc degeneration, lumbar region documented in this encounter Additional Health Concerns Infection Onset Date Last Indicated Resolved Time CoV-Risk 10/09/2022 10/09/2022 10/20/2022 1:22 AM EST COVID-19 08/20/2023 08/20/2023 09/10/2023 1:21 AM EST documented as of this encounter Care Teams Deputy K 9 Relationship Specialty Start Date End Date Adonis Noel DO luis PCP - General 07/03/17 Adonis Noel DO [address] [place] [address] (work) [email or web address] Insurance Assigned Provider 12/22/23 documented as of this encounter Additional Source Comments The information contained in this document represents components of the legal health record. It is not the complete legal health record.[facility]
--- OUTSIDE RECORDS SUMMARY | 2025-08-28 07:54 | XMS_ITS | Encounter Summary ---
Author Organization [facility] Address [address] [address] Phone Care Team Providers Care Pest Technician Name Role Phone Adonis Noel DO Primary Care Provider [phone] Adonis Noel DO Unavailable Encounter Details Date Type Department Care Team (Late st Contact Info) Description 07/15/2018 Ancillary Orders Virtual Department [address] [place] [address] Adonis Noel DO [address] [facility] [place] [address] [place] [address] luis Other intervertebral disc degeneration, lumbar region Social [...] as of this encounter Visit Diagnoses Diagnosis Other intervertebral disc degeneration, lumbar region documented in this encounter Additional Health Concerns Infection Onset Date Last Indicated Resolved Time CoV-Risk 10/09/2022 10/09/2022 10/20/2022 1:22 AM EST COVID-19 08/20/2023 08/20/2023 09/10/2023 1:21 AM EST documented as of this encounter Care Teams Pest Technician Relationship Specialty Start Date End Date Adonis Noel DO [email or web address] PCP - General 07/03/17 Adonis Noel DO [address] [place] [address] [email or web address] Insurance Assigned Provider 12/22/23 documented as of this encounter Additional Source Comments The information contained in this document represents components of the legal health record. It is not the complete legal health record.[facility]
[2025-08-28 14:08] LABS: MANUAL DIFF FLAG NO
[2025-08-28 14:26] LABS: Hematocrit 39.0 % (42.0-52.0); Hemoglobin 14.2 g/dl (14.0-18.0); Imm Gran Abs Auto 0.01 X10*3/uL (0.00-0.03); Imm Gran Pct Auto 0.2 % (0.0-0.4); Lymphocytes Absolute Auto 2.4 X10*3/uL (1.2-4.9); Mean Corpuscular HGB Conc 36.4 g/dl (31.0-36.0); Mean Corpuscular Hemoglobin 33.9 pg (27.0-33.0); Mean Corpuscular Volume 93.1 fL (80.0-98.0); NRBC Abs Auto 0.000 X10*3/uL (0.0-0.012); NRBC Pct Auto 0.0 /100WBC (0.0-0.2); Platelet Count 330 X10*3/uL (160-400); Red Blood Count 4.19 X10*6/uL (4.60-5.80); White Blood Count 6.4 X10*3/uL (4.8-10.8)
[2025-08-28 14:39] LABS: Alanine Aminotransferase 19 U/L (0-40); Albumin Level 4.3 g/dL (3.5-5.0); Alkaline Phosphatase 60 U/L (39-117); Anion Gap 7 (12-20); Aspartate Amino Transferase 22 U/L (5-37); Blood Urea Nitrogen 12 mg/dL (9-16); Calcium 8.8 mg/dL (8.4-10.2); Carbon Dioxide 28 mmol/L (22-29); Chloride 106 mmol/L (96-108); Cholesterol 209 mg/dL (<200); Estimated Glomerular Filt Rate > 60; HDL Cholesterol 47 mg/dL (>40); Potassium 4.2 mmol/L (3.3-5.1); Sodium 137 mmol/L (135-145); Total Protein 6.5 g/dL (6.5-8.0); Triglycerides 102 mg/dL (<150)
[2025-08-28 15:20] LABS: Folate 11.7 ng/mL (> or = 4.0); Prostate Specific Antigen 1.05 ng/mL (<0.05-4.0); Vitamin B12 403 pg/mL (200-900)
== END 2025-08-28 07:38 | disposition home or self-care (01) ==
LOC: HO.MANLDS 07:37
PROVIDERS: Visit Provider Internal Medicine
DX: E78.00 Pure hypercholesterolemia, unspecified (principal); E55.9 Vitamin D deficiency, unspecified; Z12.5 Encounter for screening for malignant neoplasm of prostate
CPT/HCPCS: 36415; 80053; 80061; 82306; 82607; 82746; 84153; 85025